=== PATIENT | male | born 1950 | race Caucasian/White ===

== ENCOUNTER 2017-05-26 19:30 | Emergency (ER) | payer OTHER ==
[~2017-05-26] VITALS: Ht 172.7 cm; Wt 82.0 kg
[~2017-05-26 19:30] MED LIST: GLUC500C4 PO; MULTCHW PO; OMEG1CAP51 PO; SIMV80TA2 PO; TRIA75TA PO
[2017-05-26 19:31] VITALS: TEMP 36.7; Ht 172.7 cm; Wt 82.0 kg
[2017-05-26] MEDS ORDERED: ASPI81TA28 PO (19:35)
[2017-05-26] MEDS ORDERED: LTN/10 PO (19:35)
[2017-05-26] MEDS ORDERED: ATOR-26 PO (20:10)
[2017-05-26] MEDS ORDERED: GLUC15002 PO (20:10)
[2017-05-26] MEDS ORDERED: GLC/500 PO (20:10)
[2017-05-26] MEDS ORDERED: OMEG10007 PO (20:10)
--- NOTE | 2017-05-26 20:17 | DIAGNOSTIC IMAGING REPORT ---
LEFT THIRD FINGER 3 VIEWS CLINICAL HISTORY: Fracture. FINDINGS: 3 views of the left third finger are obtained. No prior studies are available for comparison at the time of dictation. The skeletal structures are osteopenic. There is a comminuted fracture through the base of the third distal phalanx with intra-articular extension and small distracted fragments. Overlying soft tissue edema is noted. No additional fracture is seen. The third metacarpophalangeal and proximal interphalangeal joints are well-maintained. No radiodense foreign body is seen. IMPRESSION: There is a comminuted fracture through the base of the third distal phalanx with intra-articular extension and small distracted fragments. Electronically signed by: Daniel Osullivan M.D. 05/26/2017 8:16 PM Dictated Date/Time: 05/26/2017 8:15 PM
[2017-05-26] MEDS ORDERED: CEFAZOLIN SOD 1 GM VIAL IM STA (20:22)
[2017-05-26] MEDS ORDERED: XYLOCAINE 1%/SOD BICARB 20 ML VIAL INFIL ONE (20:30)
[2017-05-26] MEDS ORDERED: CEPHALEXIN 500MG HOME PACK 1 EA BTL PO ONE (20:30)
[2017-05-26] MEDS ORDERED: CEPH500C PO (21:21)
[2017-05-26 21:29] VITALS: PULSE 69; O2SAT 95
[2017-05-26 21:31] VITALS: BP 170/106
[2017-05-26] MEDS ORDERED: WATER, STERILE FOR INJ 10 ML VIAL ONE (21:31)
--- NOTE | 2017-05-26 21:38 | EMERGENCY ROOM VISIT NOTE ---
ED Visit Note First contact with patient: 21:27 LACERATION REPAIR PROCEDURE NOTE: Verbal consent was obtained prior to performing the procedure. 3 cc of 1% buffered lidocaine was used to perform a digital block of the left third digit. Once the patient was anesthetized, the wound was copiously irrigated under pressure with sterile saline. The wound was cleansed and prepped in the typical sterile fashion utilizing normal saline and Betadine. The wound was sterilely draped. The wound was explored and demonstrated deep laceration at the base of the fingernail extending to the bone. The distal extensor tendons partially exposed and appeared to be deeply lacerated, no distal extensor function in the finger. Distal flexion seems to be intact. The wound was loosely closed using 5 simple interrupted 4-0 nylon sutures with the wound edges being well approximated and bleeding was controlled. The wound was cleansed and dressed with a Bacitracin dressing. A metal splint was applied to the finger for comfort. Patient tolerated the procedure well with no complications. Problem List Medical Problems: (1) Hypertension Status: Chronic Current/Historical Medications Scheduled Aspirin (Aspirin Ec), 81 MG PO DAILY Atorvastatin (Lipitor), 80 MG PO DAILY Benazepril Hcl (Benazepril), 10 MG PO DAILY Cephalexin Monohydrate (Keflex), 500 MG PO TID Fish Oil ([place]-3), 1,000 MG PO BID Usdzqwvajvu-Ufrllvifblh-Qoo C- (Glucosamine 1500 Complex), 1 CAP PO BID Metformin Hcl (Glucophage), 500 MG PO BID Allergies Coded Allergies: Lisinopril (Verified Allergy, Severe, DIZZY, ERECTILE DYSFUNCTION, 05/26/17) INFO FROM PT & [facility] Uncoded Allergies: SPRUCE TREES (Allergy, Severe, SWELLING, 04/09/16) Vital Signs Date Time Temp Pulse Resp B/P (MAP) Pulse Ox O2 Delivery O2 Flow Rate FiO2 05/26/17 19:31 36.7 85 20 198/115 97 Room Air Departure Information Dispostion Home / Self-Care Condition GOOD Prescriptions Cephalexin Monohydrate (Keflex) 500 Mg Cap 500 MG PO TID for 7 Days, #21 CAP Prov: Sergio Bergman M.D. 05/26/17 Referrals Silas Landaverde M.D. (PCP) Memo Carmichael MD Forms HOME CARE DOCUMENTATION FORM, IMPORTANT VISIT INFORMATION Patient Instructions My [facility] Additional Instructions Follow up with Dr. Layton of hand surgery on Saturday. Return if you develop any signs of infection such as fever, redness or drainage from the wound.
--- NOTE | 2017-05-26 23:59 | EMERGENCY ROOM VISIT NOTE ---
History Report prepared by Pardeep: Luisana Lin Under the Supervision of: Dr. Sergio Bergman M.D. First contact with patient: 19:49 Chief Complaint: AVULSION Stated Complaint: CUT END LF MIDDLE FINGER OFF History of Present Illness The patient is a 66 year old male who presents to the Emergency Room with complaints of a sudden laceration to his left third digit that began prior to arrival. He currently rates his discomfort as an 8/10 in severity. 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 He states that he caused a laceration to his left middle finger. The patient states that he cannot move the tip of his finger. He states that his tetanus is up to date. The patient denies any numbness to his finger. Source of History: patient Onset: prior to arrival Position: finger(s) (left, third) Symptom Intensity: 8/10 Quality: other (avulsion) Timing: other (sudden) Associated Symptoms: No numbness Note: Associated symptoms: cannot move the tip of his finger. Review of Systems See HPI for pertinent positives & negatives. A total of 10 systems reviewed and were otherwise negative. Past Medical & Surgical Medical Problems: (1) Hypertension Family History Diabetes mellitus Heart disease Hypertension Social History Smoking Status: Former Smoker Alcohol Use: none Marital Status: Housing Status: lives with significant other Occupation Status: retired Current/Historical Medications Scheduled Aspirin (Aspirin Ec), 81 MG PO DAILY Atorvastatin (Lipitor), 80 MG PO DAILY Benazepril Hcl (Benazepril), 10 MG PO DAILY Cephalexin Monohydrate (Keflex), 500 MG PO TID Fish Oil ([place]-3), 1,000 MG PO BID Bzdodrngaag-Sulhrlkbzmm-Ebk C- (Glucosamine 1500 Complex), 1 CAP PO BID Metformin Hcl (Glucophage), 500 MG PO BID Allergies Coded Allergies: Lisinopril (Verified Allergy, Severe, DIZZY, ERECTILE DYSFUNCTION, 05/26/17) INFO FROM PT & [facility] Uncoded Allergies: SPRUCE TREES (Allergy, Severe, SWELLING, 04/09/16) Physical Exam Vital Signs Date Time Temp Pulse Resp B/P (MAP) Pulse Ox O2 Delivery O2 Flow Rate FiO2 05/26/17 21:31 170/106 05/26/17 21:29 69 165/104 95 Room Air 05/26/17 21:29 172/107 05/26/17 21:15 69 97 05/26/17 21:01 174/108 05/26/17 21:00 65 98 05/26/17 20:45 73 94 05/26/17 20:15 69 95 05/26/17 20:01 166/116 05/26/17 20:00 81 96 05/26/17 19:47 186/114 05/26/17 19:31 36.7 85 20 198/115 97 Room Air Physical Exam Constitutional: Vital signs reviewed. Eyes: Pupils are equal round reactive to light. Conjunctiva are noninjected. ENT: Pharynx is clear without erythema or exudate. Mucous membranes are moist. Neck supple without meningeal signs. Respiratory: Clear to auscultation bilaterally. Breath sounds are equal bilaterally. Cardiovascular: Regular rate and rhythm. No rubs or gallops. GI: Soft, nondistended and nontender. Bowel sounds are present. Musculoskeletal: Left third digit with laceration across dorsal aspect. Finger held in flexion at the DIP unable to extend fingertip, normal distal cap refill , normal sensation. Integumentary: No cyanosis. Neurological: The patient is awake and alert. No focal deficits. Psychiatric: Normal affect. Medical Decision & Procedures ER Provider Diagnostic Interpretation: X-ray results as stated below per interpretation by me and the radiologist: LEFT THIRD FINGER 3 VIEWS CLINICAL HISTORY: Fracture. FINDINGS: 3 views of the left third finger are obtained. No prior studies are available for comparison at the time of dictation. The skeletal structures are osteopenic. There is a comminuted fracture through the base of the third distal phalanx with intra-articular extension and small distracted fragments. Overlying soft tissue edema is noted. No additional fracture is seen. The third metacarpophalangeal and proximal interphalangeal joints are well-maintained. No radiodense foreign body is seen. IMPRESSION: There is a comminuted fracture through the base of the third distal phalanx with intra-articular extension and small distracted fragments. Electronically signed by: Daniel Osullivan M.D. 05/26/2017 8:16 PM Dictated Date/Time: 05/26/2017 8:15 PM Medications Administered Medications (Trade) Dose Ordered Sig/Melchor Route Start Time Stop Time Status Last Admin Dose Admin Cefazolin Sodium (Ancef Inj) 1,000 mg ONE STAT IM 05/26/17 20:22 05/26/17 20:23 DC 05/26/17 21:37 1,000 MG Cephalexin Monohydrate (Keflex 500MG Home Pack) 1 homepack NOW ONCE PO 05/26/17 20:30 05/26/17 20:31 DC 05/26/17 21:36 1 HOMEPACK ED Course 1948: The patient was evaluated in room B2. A complete history and physical exam was performed. 2019: I discussed the patients case with Dr. Ann, Orthopedics. He states that the patients finger should be loosely stitched and washed out. He states that he will see the patient in [place] tomorrow or Saturday in [place]. 2021: Ordered Ancef Inj 1000 mg IM. 2022: I reevaluated the patient and he is resting comfortably. I discussed the x-ray results with him and I discussed the treatment plan. He verbalized complete understanding and agreement. He will follow up on Saturday with Dr. Carmichael. The laceration will be repaired by MELANIE Berry. See her note for further detail. 2029: Ordered Cephalexin Monohydrate 1 homepack PO, Lidocaine HCl 20 ml INFIL. 2118: I reevaluated the patient and he is doing well. His laceration has been repaired and he is ready for discharge. 2130: Ordered Sterile Water 10 ml .route. Medical Decision This is a 66-year-old male who presents with an injury to his left third digit. I did perform a limited focused review of portions of the patient's old chart on the electronic medical record. The patient has had no recent pertinent visits to this hospital. Medication Reconciliation: I attest that I have personally reviewed the patient' s current medication list. Blood Pressure Screening: Patient was found to have an elevated blood pressure and was referred to their primary doctor for recheck and further treatment. I did evaluate the patient as noted above. The patient has an open fracture laceration to the left third digit. He has evidence of extensor tendon or injury as well. He declined any pain medications. His tetanus is up-to-date. I did order and personally review the patient's x-rays as described above. I did discuss the results with the patient and his daughter. I did discuss the case with Dr. Carmichael of hand surgery who reviewed the x-rays himself. He recommended loose closure and irrigation and he will follow up in the office either tomorrow or Saturday as per the patient's preference. The wound was copiously irrigated and cleaned by Sandra Bruce. Please see her dictation for further details. He was placed in a bare-metal splint in extension. The patient preferred to follow up in [place] and so he will see the hand surgeon on Saturday. He was discharged with a prescription for Keflex and given Ancef 1 g IM here. Consults Time Called: 2014 Consulting Physician: Dr. Carmichael, Orthopedics Returned Call: 2018 I discussed the patients case with Dr. Ann, Orthopedics. He states that the patients finger should be loosely stitched and washed out. He states that he will see the patient in [place] tomorrow or Saturday in [place]. Impression Primary Impression: Open finger fracture Additional Impression: Injury of extensor tendon of left hand Scribe Attestation The scribe's documentation has been prepared under my direct and personally reviewed by me in its entirety. I confirm that the note above accurately reflects all work, treatment, procedures, and medical decision making performed by me. Departure Information Dispostion Home / Self-Care Prescriptions Cephalexin Monohydrate (Keflex) 500 Mg Cap 500 MG PO TID for 7 Days, #21 CAP Prov: Sergio Bergman M.D. 05/26/17 Referrals Silas Landaverde M.D. (PCP) Memo Carmichael MD Forms HOME CARE DOCUMENTATION FORM, IMPORTANT VISIT INFORMATION Patient Instructions My [facility] Additional Instructions Follow up with Dr. Layton of hand surgery on Saturday. Return if you develop any signs of infection such as fever, redness or drainage from the wound. Problem Qualifiers Primary Impression: Open finger fracture Encounter type: initial encounter Finger: middle finger Phalanx: distal Fracture alignment: nondisplaced Laterality: left Qualified Codes: S62.663B - Nondisplaced fracture of distal phalanx of left middle finger, initial encounter for open fracture Additional Impression: Injury of extensor tendon of left hand Encounter type: initial encounter Qualified Codes: S66.902A - Unspecified injury of unspecified muscle, fascia and tendon at wrist and hand level, left hand, initial encounter
--- NOTE | 2017-05-28 13:35 | EDITING REQUIRED CODING QUERY ---
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 Please assist us with the question(s) below: Please document the length of the LEFT MIDDLE FINGER laceration. Please type the length in cm within the parenthesis () below. LEFT MIDDLE FINGER laceration is ( 4 ) cm. Thank you Floridalma Ling
== END 2017-05-26 21:49 | disposition home or self-care (01) ==
LOC: C.EDB 19:30
DX: S62.663B Nondisplaced fracture of distal phalanx of left middle finger, initial encounter for open fracture (principal); S66.303A Unspecified injury of extensor muscle, fascia and tendon of left middle finger at wrist and hand level, initial encounter; W30.89XA Contact with other specified agricultural machinery, initial encounter; Y92.73 Farm field as the place of occurrence of the external cause; I10 Essential (primary) hypertension; Z87.891 Personal history of nicotine dependence; Z79.84 Long term (current) use of oral hypoglycemic drugs; Z79.82 Long term (current) use of aspirin

== ENCOUNTER 2019-04-22 11:46 | Observation (INO) ==
[2019-04-22] MEDS ORDERED: NITROGLYCERIN 2% OINTMENT 30GM TUBE EXT STA (12:13)
[2019-04-22 12:24] LABS: Basophils # (auto) 0.04 K/uL (0-0.2); Basophils % (auto) 0.7 %; Eosinophils # (auto) 0.12 K/uL (0-0.5); Eosinophils % (auto) 2.1 %; Hematocrit (blood only) 46.5 % (42-52); Immature Granulocytes # (auto) 0.01 K/uL (0.00-0.02); Immature Granulocytes % (auto) 0.2 %; Lymphocytes # (auto) 1.37 K/uL (1.2-3.4); Lymphocytes % (auto) 23.5 %; Mean Corpuscular Hgb Conc 34.4 g/dL (32-36); Mean Corpuscular Volume 91.9 fL (80-100); Mean Platelet Volume 10.5 fL (7.4-10.4); Monocytes # (auto) 0.47 K/uL (0.11-0.59); Neutrophils # (auto) 3.83 K/uL (1.4-6.5); Neutrophils % (auto) 65.5 %; Platelet Count 235 K/uL (130-400); RDW Coefficient of Variation 13.4 % (11.5-14.5); Red Blood Count 5.06 M/uL (4.7-6.1); White Blood Count 5.84 K/uL (4.8-10.8)
--- NOTE | 2019-04-22 12:32 | XRay Report ---
XR chest 1V portable CLINICAL HISTORY: 68 years-old Male presenting with Chest Pain. TECHNIQUE: Portable upright AP view of the chest was obtained. COMPARISON: 10/04/2006. FINDINGS: Cardiac silhouette borderline enlarged. No focal opacity. No large effusion or pneumothorax. Osseous structures normal. Upper abdomen normal. IMPRESSION: 1. Borderline cardiac enlargement. Otherwise no acute cardiopulmonary disease. Electronically signed by: Harrison Richards M.D. 04/22/2019 12:31 PM
[2019-04-22 12:35] LABS: Alanine Aminotransferase 41 U/L (12-78); Albumin Level 3.7 gm/dl (3.4-5.0); Aspartate Aminotransferase 27 U/L (15-37); BUN Creatinine Ratio 21.3 (10-20); Blood Urea Nitrogen 27 mg/dl (7-18); Calcium 8.9 mg/dl (8.5-10.1); Carbon Dioxide 22 mmol/L (21-32); Chloride 109 mmol/L (98-107); Creatinine Clr Calc Pharmacy 57.7 ml/min; Est GFR (African American) 65.3; Est GFR (Non-African American) 56.3; Glucose 108 mg/dl (70-99); Potassium 4.2 mmol/L (3.5-5.1); Sodium 139 mmol/L (136-145)
[2019-04-22 12:39] LABS: Alkaline Phosphatase 65 U/L (45-117); Bilirubin,Total 0.4 mg/dl (0.2-1); Globulin 3.8 gm/dl (2.5-4.0); Total Protein 7.5 gm/dl (6.4-8.2); Troponin I < 0.015 ng/ml (0-0.045)
--- NOTE | 2019-04-22 14:16 | Emergency Department Note ---
Entered by Rhonda Herman acting as a scribe for ED Provider Note CHIEF COMPLAINT: Chest Pain HISTORY OF PRESENT ILLNESS: The patient is a 68 year old male who presents to the Emergency Room with complaints of intermittent chest pain starting 2 weeks ago. The patient states that he has had left sided chest pain that radiates into his left arm over the last 2 weeks. He states that today he went to [facility] and they did an EKG. He states that they were concerned and sent him here to the ED. Per the patient�s records, the patient was given an Aspirin by EMS. The patient currently rates his pain as a 2/10 in severity. He notes that his chest pain is better compared to at the office. The patient notes that 2 weeks ago he was sent to the ED for high blood pressure. He notes that he did have some chest discomfort at that time, but thought it was due to a cold since he was coughing up phlegm. He notes that he had a stress test over 15 years ago. The patient complains of increased urination. The patient denies the pain being worse with exertion. Pt denies LOC, headache, fevers, chills, diaphoresis, visual changes, neck pain, breathing difficulties, nausea, vomiting, abdominal pain, back pain, melena, hematochezia, numbness, tingling, weakness, lymphadenopathy, rash, or other complaints. REVIEW OF SYSTEMS: See HPI for pertinent positives and negatives. A total of ten systems were reviewed and were otherwise negative. PMHx/PSHx: HTN SOCIAL HISTORY: Patient lives at home with his . He is retired from the . He denies drinking alcohol. He does use smokeless tobacco. PHYSICAL EXAM: GENERAL: Awake, alert, well-appearing, in no distress HENT: Normocephalic, atraumatic. Oropharynx unremarkable. EYES: PERRL. Normal conjunctiva. Sclera non-icteric. NECK: Inspection normal. Non-tender. Supple. No nuchal rigidity. FROM. No masses. RESPIRATORY: Clear to auscultation. No wheezes. No rales. Normal respiratory effort. CARDIAC: Bradycardic rate. Normal rhythm. No murmurs. No rubs. Extremities warm and well perfused. Pulses equal. No JVD. GI: Soft, non-distended. No tenderness to palpation. No rebound or guarding. No masses. RECTAL: Deferred. MUSCULOSKELETAL: Atraumatic. Chest examination reveals no tenderness. The back is symmetrical on inspection without obvious abnormality. There is no CVA tenderness to palpation. No joint edema. LOWER EXTREMITIES: Calves are equal size bilaterally and non-tender. No edema. No discoloration. NEURO: Normal sensorium. No sensory or motor deficits noted. SKIN: No rash or jaundice noted. EMERGENCY DEPARTMENT COURSE: 1209: Past medical records reviewed. The patient was evaluated in room C6, and a complete history and physical examination were performed. 1330: I reevaluated the patient and updated him on his test results. I discussed the treatment plan with him. He verbally agrees and understands. 1334: I discussed the patient's case with [facility] She will evaluate the patient for further management. MEDICAL DECISION MAKING: Prior records/ancillary studies reviewed. Patient presented previously for evaluation of hypertension. His laboratory testing was unremarkable. Triage Nursing notes reviewed and agree them. Additional history obtained from the family. The patient's history was concerning for chest pain and acute ECG changes. Differential diagnosis: Etiologies such as cardiac ischemia, aortic dissection, pulmonary embolism, pneumonia, pneumothorax, musculoskeletal, infections, pericarditis, myocarditis, esophageal rupture, gastrointestinal, as well as others were entertained. Physical examination: As above. ER treatment provided: Cardiac monitoring Nitropaste 0.5 inch to the chest wall. Aspirin given prehospital. On reassessment the patient felt well. He was still pain-free. Diagnostic interpretation by me: The electrocardiogram was negative for pathologic change. The labs revealed an unremarkable CBC and chemistry panel. Troponin was negative. Imaging studies: Chest imaging was negative for any acute pathology. The patient has acute ECG changes with chest pain. He needs further management and work-up in the hospital. I discussed this with him and his daughter. They were both in agreement. Consultation: [facility] The case was discussed and diagnostics were reviewed. The patient was evaluated in the ER for further treatment. IMPRESSION: Substernal chest pain, Acute ECG changes, HTN PLAN: Evaluation by Hospitalist The scribe's documentation has been prepared under my direction and personally reviewed by me in its entirety. I confirm that the note above accurately reflects all work, treatment, procedures, and medical decision making performed by me. Impression & Plan Substernal chest pain, HTN (hypertension), Acute electrocardiogram changes Past Med/Surg History Medical History Encounter for tobacco use cessation counseling (Acute) Hypertension (Chronic) Injury of extensor tendon of left hand (Acute) Open finger fracture (Acute) Family History Other Family history non-contributory Social History Preferred Language: Uzbek marital status: Current Living Situation: Spouse current occupational status: retired Feels Safe at Home: Yes Smoking Status: Never smoker Tobacco Type: smokeless tobacco Hx Alcohol Use: No Results & Data Vital Signs Vital Signs - 24 hr 04/22/19 11:40 04/22/19 11:54 04/22/19 11:57 Temperature 36.5 C Temperature Source Oral Sepsis Recent Fever Within 48 Hours No Sepsis New/Unexplained Change in Mental Status No Sepsis Action Taken by Nursing No Action Required Pulse Rate 53 L 56 L Pulse Rate from SpO2 Sensor 52 L Pulse Rhythm Regular Pulse Strength Normal Respiratory Rate 23 18 Respiratory Effort / Characteristics Non-Labored Spontaneous Respiratory Depth Normal Respiratory Pattern Regular Blood Pressure 155/126 H 155/126 H Blood Pressure Mean 135 135 Blood Pressure Position Lying Pulse Oximetry 98 96 97 Oxygen Delivery Method Room Air Room Air 04/22/19 12:00 04/22/19 12:30 04/22/19 12:37 Temperature Temperature Source Sepsis Recent Fever Within 48 Hours Sepsis New/Unexplained Change in Mental Status Sepsis Action Taken by Nursing Pulse Rate 53 L 54 L 51 L Pulse Rate from SpO2 Sensor 55 L 55 L 53 L Pulse Rhythm Pulse Strength Respiratory Rate 24 18 20 Respiratory Effort / Characteristics Respiratory Depth Respiratory Pattern Blood Pressure 170/108 H Blood Pressure Mean 128 Blood Pressure Position Pulse Oximetry 96 97 96 Oxygen Delivery Method Home Medications Current Medication List: was personally reviewed by me Laboratory Data Attestation: I reviewed the patient's lab results. Result diagrams: 04/22/19 11:35 04/22/19 11:35 Lab Results 04/22/19 04/22/19 Range/Units 11:35 11:35 WBC 5.84 (4.8-10.8) K/uL RBC 5.06 (4.7-6.1) M/uL Hgb 16.0 (14.0-18.0) g/dL Hct 46.5 (42-52) % MCV 91.9 (80-100) fL MCH 31.6 (25-34) pg MCHC 34.4 (32-36) g/dL RDW Std Deviation 45.0 (36.4-46.3) fL RDW Coeff of Jeny 13.4 (11.5-14.5) % Plt Count 235 (130-400) K/uL MPV 10.5 H (7.4-10.4) fL Immature Gran % (Auto) 0.2 % Neut % (Auto) 65.5 % Lymph % (Auto) 23.5 % [place] % (Auto) 8.0 % Eos % (Auto) 2.1 % Baso % (Auto) 0.7 % Immature Gran # (Auto) 0.01 (0.00-0.02) K/uL Neut # (Auto) 3.83 (1.4-6.5) K/uL Lymph # (Auto) 1.37 (1.2-3.4) K/uL [place] # (Auto) 0.47 (0.11-0.59) K/uL Eos # (Auto) 0.12 (0-0.5) K/uL Baso # (Auto) 0.04 (0-0.2) K/uL Sodium 139 (136-145) mmol/L Potassium 4.2 (3.5-5.1) mmol/L Chloride 109 H (98-107) mmol/L Carbon Dioxide 22 (21-32) mmol/L Anion Gap 8.0 (3-11) BUN 27 H (7-18) mg/dl Creatinine 1.28 (0.6-1.4) mg/dl Est Cr Clr Drug Dosing 57.7 ml/min Est GFR ( Amer) 65.3 Est GFR (Non-Af Amer) 56.3 BUN/Creatinine Ratio 21.3 H (10-20) Glucose 108 H (70-99) mg/dl Calcium 8.9 (8.5-10.1) mg/dl Total Bilirubin 0.4 (0.2-1) mg/dl AST 27 (15-37) U/L ALT 41 (12-78) U/L Alkaline Phosphatase 65 (45-117) U/L Troponin I < 0.015 (0-0.045) ng/ml Total Protein 7.5 (6.4-8.2) gm/dl Albumin 3.7 (3.4-5.0) gm/dl Globulin 3.8 (2.5-4.0) gm/dl Albumin/Globulin Ratio 1.0 (0.9-2) Lipase 138 (73-393) U/L Specimen Hemolysis Administered Medications Discontinued Medications Nitroglycerin (Nitro-Bid 2%) 0.5 inch EXT NOW STA Stop: 04/22/19 12:14 Last Admin: 04/22/19 12:26 Dose: 0.5 inch Documented by: [id number] Imaging Data Radiologist's Impression: Radiology results as stated below per my review and the radiologist's interpretation: XR chest 1V portable CLINICAL HISTORY: 68 years-old Male presenting with Chest Pain. TECHNIQUE: Portable upright AP view of the chest was obtained. COMPARISON: 10/04/2006. FINDINGS: Cardiac silhouette borderline enlarged. No focal opacity. No large effusion or pneumothorax. Osseous structures normal. Upper abdomen normal. IMPRESSION: 1. Borderline cardiac enlargement. Otherwise no acute cardiopulmonary disease. Electronically signed by: Harrison Richards M.D. 04/22/2019 12:31 PM ECG Data Attestation: I personally reviewed and interpreted this ECG as follows: Indication: chest pain Rate (beats per minute): 49 Rhythm: sinus bradycardia Findings: + T-wave inversion (lateral); no PAC, no PVC and no ST elevation Comparison ECG Date: from (04/10/2019) Change: the following changes noted (Inferior and lateral TWI are new compared to prior) Additional Comments: PREHOSPITAL: Sinus bradycardia at a rate of 56. TWI in inferior and lateral leads. No PVCs or PACS. No ST elevation. Blood Pressure Blood Pressure Findings: Elevated blood pressure Blood Pressure Disposition: further management by hospitalist Discharge Plan Visit Data Chief Complaint: Chest Pain ED Provider: Porfirio Candelaria Discharge Problem: Substernal chest pain, HTN (hypertension), Acute electrocardiogram changes Patient Disposition: Being Evaluated by Hospitalist Forms Stand Alone Forms: Call Back Authorization, [facility] Prescriptions Prescriptions: No Action metformin [Glucophage] 500 mg Tablet 250 mg PO BIDM RF: 0 atorvastatin 80 mg Tablet 80 mg PO QAM RF: 0 aspirin [Aspir-Low] 81 mg Tablet,Delayed Release (Dr/Ec) 81 mg PO QAM RF: 0 acetaminophen [Tylenol Extra Strength] 500 mg Tablet 500 mg PO QID PRN (Reason: Pain) RF: 0 [place]-3 Fish Oil 300-1,000 mg Capsule 1 cap PO BID RF: 0 Glucosamine Chondroitin 550-30-1 mg Capsule 1 cap PO BID RF: 0 benazepril 5 mg tablet 5 mg PO DAILY RF: 0 potassium 99 mg Tablet 99 mg PO QAM RF: 0 Referrals Referrals: Silas Landaverde MD [Primary Care Provider] - Discharge Problem: HTN (hypertension) Qualifiers: Hypertension type: unspecified Qualified Code(s): I10 - Essential (primary) hypertension The scribe's documentation has been prepared under my direction and personally reviewed by me in its entirety. I confirm that the note above accurately reflects all work, treatment, procedures, and medical decision making performed by me.
--- NOTE | 2019-04-22 15:43 | History & Physical Report ---
Date of Service April 22, 2019 Assessment & Plan (1) Chest pain: Pt presents with c/o intermittent CP x 2 weeks. Last night with lightheaded sensation with CP. In ER afebrile, P: 56, R: 18, BP: 155/126, 97% on RA. No leukocytosis, initial troponin negative. EKG: sinus bradycardia, rate 49, t wave inversion lateral and inferior. Outside facility ekg from today at 10:35am shows t wave inversion lateral and inferior leads. 04/10/19 ekg with t wave inversion lateral leads CXR: Borderline cardiac enlargement. Otherwise no acute cardiopulmonary disease. Pt was given 324mg aspirin by EMS. Pt reports has been CP free prior to ER arrival and remains CP frees iN ER. In ER nitropaste applied. H/O negative exercise stress test 2010 CHEST PAIN R/O ACS. Risk factors: HTN, hyperlipidemia, tobacco use. DDX: HTN emergency, GERD, musculoskeletal -Monitor Vitals -Repeat EKG in am -Will trend troponin -Pt with reported pleuritic CP in ER, D-dimer was WNL -Echo -Lipid panel in AM, continue statin -Continue ASA -Nitropaste -Cardiology consult (2) Hypertension: Pt did not have BP meds today. Hx home BPs with SBPs 150's-200 over the past month In ER BP: 155/126, 170/108 down to 161/98 after 0.5 inch nitro paste -Continue lisinopril -Nitropaste -May need to consider adding additional meds -Monitor BP (3) Diabetes mellitus, type II: A1c: 6.5 on 03/06/2018 -Hold metformin -NovoLog sliding scale per protocol (4) Dyslipidemia: -Continue standard (5) CKD (chronic kidney disease), stage III: Cr: 1.28 (baseline 1.2) -Monitor renal functions -Avoid nephrotoxic agents when possible (6) Tobacco chew use: -Cessation encouraged DVT Prophylaxis -Heparin SQ Full Code as per discussion with pt Follows with Dr Landaverde and [facility] for routine care Pt was seen with Dr Pantoja. See addendum History of Present Illness Chief Complaint: CP Primary Care Provider: Silas Landaverde MD Pt is 68 y/o M with PMH HTN, dyslipidemia, CKD III, DM II, tobacco use presented to ER with complaint of chest pain. Patient reports increased intermittent anterior mid chest pain for the past 2 weeks. Chest pain can occur with sitting and has been occurring 2-3 times a day. It is sometimes followed by paresthesias to his bilateral upper arms. Has not had any other associated symptoms until yesterday when he had chest pain and felt lightheaded. Denies any radiation of chest pain. Denies left arm pain, jaw pain, neck pain, diaphoresis, shortness of breath syncope, palpitations. Pt states initially he thought he was having acid reflux and tried Tums/Rolaids without relief. Patient has been having elevated blood pressures. He has been taking BP at home and home readings SBP 150-200. Patient was started on medication by a clinic. Patient is unsure of his BP meds however it appears that patient was prescribed benazepril 10 mg daily by [facility]. Patient had ER visit 04/10/2019 for hypertension and lisinopril was increased to 20mg daily. (It appears the patient is currently on lisinopril) patient denies any other BP med use. He did not have his BP meds today. Patient was at [facility] today and mentioned had chest pain and EKG was obtained there showing T wave inversion inferior and lateral leads. Patient was sent to ER. Patient reports was given 4 baby aspirin by EMS in route and states had resolution of his CP. No further CP while in ER. Patient reports chronic left shoulder pain and has been following with the [facility] and had x-rays taken recently, unsure of results. Pt reports has been taking Claritin-D recentl y. 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 Reports chronic cough productive white. Denies fever/chills, diaphoresis, N/V/D/C, FLEMING, vision changes, neck pain, SOB, orthopnea, palpitations, sore throat, choking, otalgia, rhinorrhea, abdominal pa in, weakness, extremity weakness, extremity edema, rashes, urinary symptoms. Hx exercise stress test 2011: No inducible ischemia Allergies Allergy/AdvReac Type Severity Reaction Status Date / Time lisinopril Allergy Severe DIZZY, Verified 04/22/19 12:36 ERECTILE DYSFUNCTION SPRUCE TREES Allergy Severe SWELLING Uncoded 04/22/19 12:36 Home Medications Home Medications Medication Instructions Recorded Confirmed Type acetaminophen [Tylenol Extra 500 mg PO QID PRN 04/10/19 04/22/19 History Strength] aspirin [Aspir-Low] 81 mg PO QAM 04/10/19 04/22/19 History atorvastatin 80 mg PO QAM 04/10/19 04/22/19 History glucos sul [id number]-Mn 1 cap PO BID 04/10/19 04/22/19 History [Glucosamine Chondroitin] metformin [Glucophage] 500 mg PO BID 04/10/19 04/22/19 History [id number]-epa-fish oil [[place]-3 1 cap PO BID 04/10/19 04/22/19 History Fish Oil] lisinopril 10 mg PO BID 04/22/19 04/22/19 History potassium 99 mg PO QAM 04/22/19 04/22/19 History Past Med/Surg History Medical History Dyslipidemia (Chronic) CKD (chronic kidney disease), stage III (Chronic) Diabetes mellitus, type II (Chronic) Tobacco chew use (Chronic) Hypertension (Chronic) Injury of extensor tendon of left hand (Resolved) Open finger fracture (Resolved) Surgical History History of carpal tunnel surgery (Resolved) Family History Father Coronary heart disease [place] at age 80 Social History Preferred Language: Latvian Communication Ability: Effective 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 Beliefs That Will Affect Care: None marital status: Current Living Situation: Spouse current occupational status: retired Feels Safe at Home: No Is there a partner from a previous relationship who is making you feel unsafe now?: No Any Concerns about Your Family Situation: No Would You Like to Speak to Someone About Your Situation: No Safety Concerns: Feels Safe At This Time Smoking Status: Former smoker Tobacco Type: cigarettes and smokeless tobacco Cigarettes Per Day: 20, chew-pouch a week Do You Dip or Chew Tobacco: Yes Smoking End Date: 1999 Second Hand Exposure: No Tobacco Cessation Education Requested by Patient: No Hx Alcohol Use: No Hx Substance Use: No Review of Systems Review of Systems: All systems reviewed & are unremarkable except as noted in HPI & below Physical Exam Physical Exam: General: no acute distress, WDWN Head: normocephalic, atraumatic Eyes: PERRL, EOM's intact, conjunctiva non-injected, anicteric ENT: normal inspection external ears, nose, mucous membranes moist Neck: supple, trachea midline Lungs: clear, no respiratory distress, no wheezing/rhonchi/rales Chest: no rashes noted; mild tenderness to palpation left lower sternal border CV: RRR, no murmur, no pretibial edema Abd: normal BS, soft, non-tender Ext: no cyanosis, no calf tenderness Neuro: A&O x 3, no focal deficits noted, normal affect Skin: warm, dry Results & Data Vital Signs (Past 12 Hours) Vital Signs Temp Pulse Resp BP Pulse Ox 04/22/19 12:37 51 L 20 170/108 H 96 04/22/19 12:30 54 L 18 97 04/22/19 12:00 53 L 24 96 04/22/19 11:57 36.5 C 56 L 18 155/126 H 97 04/22/19 11:54 53 L 23 155/126 H 96 04/22/19 11:40 98 Laboratory Results Short CBC 04/22/19 Range/Units 11:35 WBC 5.84 (4.8-10.8) K/uL Hgb 16.0 (14.0-18.0) g/dL Hct 46.5 (42-52) % Plt Count 235 (130-400) K/uL BMP 04/22/19 11:35 Sodium 139 Potassium 4.2 Chloride 109 H Carbon Dioxide 22 BUN 27 H Creatinine 1.28 Glucose 108 H Calcium 8.9 Cardiac Enzymes 04/22/19 Range/Units 11:35 Troponin I < 0.015 (0-0.045) ng/ml Liver Function 04/22/19 Range/Units 11:35 Total Bilirubin 0.4 (0.2-1) mg/dl AST 27 (15-37) U/L ALT 41 (12-78) U/L Alkaline Phosphatase 65 (45-117) U/L Albumin 3.7 (3.4-5.0) gm/dl Diagnostic Findings CXR: IMPRESSION: 1. Borderline cardiac enlargement. Otherwise no acute cardiopulmonary disease. ECG Additional Comments: sinus bradycardia, rate 49, t wave inversion lateral and inferior outside facility ekg from today at 10:35am shows t wave inversion lateral and inferior leads 04/10/19 ekg with t wave inversion lateral leads Supervising Physician Co-Signing Physician Notes Patient is a 68-year-old male with history of CKD, dyslipidemia, tobacco use, hypertension and other problems presents with history of chest pain. He reports the chest pain is intermittent, retrosternal, ongoing since past 2 weeks. Admits to having high blood pressure readings at home. Also admits to being noncompliant with salt restriction. Please review HPI for complete details of presentation. Patient was found to have elevated blood pressure on presentation today. Troponin x2 negative. EKG showed T wave inversions in inferolateral leads. Chest x-ray was unremarkable. He was given aspirin by EMS, Nitropaste applied in ED, currently is chest pain-free while in ED. Negative D-Dimer. Chest pain is likely secondary to uncontrolled hypertension. Chronic bradycardia likely physiological. Plan to trend troponins, check resting echo, continue Nitropaste, cardiology consulted. Need to optimize medications to control blood pressure. Advised salt restriction, counseled to quit tobacco use. On exam patient is well-built and nourished, no apparent distress, normocephalic atraumatic, lungs are clear to auscultation, S1-S2, no murmur, abdomen soft nontender, no neurological focal deficits, no pedal edema. I personally reviewed the record. Patient is interviewed and examined at bedside. Patient's care is coordinated with Donna Ghotra PA-C. Please refer to the documentation above for details of patient's presentation and for discussion of other issues.
[2019-04-22 16:02] LABS: D Dimer 350 ug/L FEU (0-500)
[2019-04-22] MEDS ORDERED: GLUCOSE 40% GEL 15 GM TUBE PO PRN (17:23)
[2019-04-22] MEDS ORDERED: GLUCAGON FOR INJ 1 MG VIAL SQ PRN (17:23)
[2019-04-22] MEDS ORDERED: CARBOHYDRATES FOR HYPOGLYCEMIA PO PRN (17:23)
[2019-04-22] MEDS ORDERED: GLUCOSE 10 TABS/TUBE PO PRN (17:23)
[2019-04-22] MEDS ORDERED: ACETAMINOPHEN 325 MG TAB PO PRN (17:23)
[2019-04-22] MEDS ORDERED: DEXTROSE 50% 50 ML SYRINGE IV PRN (17:23)
[2019-04-22] MEDS: INSULIN ASPART 100 UNITS/ML 3 ML PEN SC SCH ×2 (18:07→20:55)
[2019-04-22] MEDS: NITROGLYCERIN 2% OINTMENT 30GM TUBE EXT SCH ×2 (18:18→23:21)
[2019-04-22 18:20] LABS: INR 1.1 (0.9-1.1); Partial Thromboplastin Time 27.6 Seconds (21.0-31.0); Prothrombin Time 10.8 Seconds (9.0-12.0)
[2019-04-22] MEDS: LISINOPRIL 10 MG TAB PO SCH ×2 (18:39→20:56)
[2019-04-22] MEDS: HEPARIN SOD 5,000 UNIT/0.5 ML VIAL SQ SCH (22:15)
[2019-04-23] MEDS: NITROGLYCERIN 2% OINTMENT 30GM TUBE EXT SCH ×5 (05:26→23:21)
[2019-04-23] MEDS: HEPARIN SOD 5,000 UNIT/0.5 ML VIAL SQ SCH ×3 (05:26→21:29)
[2019-04-23 07:43] LABS: Hematocrit (blood only) 44.5 % (42-52); Hemoglobin 15.7 g/dL (14.0-18.0); Mean Corpuscular Hgb Conc 35.3 g/dL (32-36); Mean Corpuscular Volume 91.6 fL (80-100); Platelet Count 216 K/uL (130-400); RDW Coefficient of Variation 13.4 % (11.5-14.5); Red Blood Count 4.86 M/uL (4.7-6.1); White Blood Count 6.42 K/uL (4.8-10.8)
--- NOTE | 2019-04-23 07:53 | Hospitalist Progress Note ---
Date of Service April 23, 2019 Assessment & Plan (1) Chest pain: Pt presents with c/o intermittent CP x 2 weeks. Last night with lightheaded sensation with CP. CHEST PAIN: Risk factors: HTN, hyperlipidemia, tobacco use. DDX: HTN emergency, GERD, musculoskeletal Hx of negative exercise stress test in 2010 EKG: sinus bradycardia, T wave inversion in V4-6; no change compared to 04/10 EKG -Trop x 2 negative. Had a brief episode of A flutter ? - cardiology made aware -Continue with ASA, Atorvastatin, Lisinopril, Nitroglycerin q 6 hours -Echo- EF 45-50%, Gd I diastolic dysfunction, Moderate LVH -Work up- CXR: Borderline cardiac enlargement. Otherwise no acute cardiopulmonary disease -Cardiology consulted- Plan is for stress test today (2) Hypertension: Elevated -Continue lisinopril 10 mg twice daily -Nitropaste every 6 hours -Monitor BP (3) Diabetes mellitus, type II: A1c: 6.5 on 03/06/2018 -Hold metformin -NovoLog sliding scale per protocol (4) Dyslipidemia: -Continue atorvastatin 80 mg nightly (5) CKD (chronic kidney disease), stage III: Cr: 1.28 (baseline 1.2) -Monitor renal functions -Avoid nephrotoxic agents when possible (6) Tobacco chew use: -Cessation encouraged DVT Prophylaxis -Heparin SQ Full Code as per discussion with pt Follows with Dr Landaverde and [facility] for routine care DISPOSITION Medical mx in progress For stress test today Subjective Patient is feeling much better. Denies any chest pain, shortness of breath. No palpitations or dizziness. Saturating well on room air Telemetry- Brief episode of Atrial flutter Physical Exam Physical Exam: GENERAL- AAOX3, No acute distress LUNGS- Air entry bilaterally equal. No rales, rhonchi, crackles, wheezes heard. HEART- Regular rate and rhythm. No murmurs ABDOMEN- Soft, non tender, non distended, Bowel sounds heard. EXTREMITIES- Good peripheral pulses, no edema Results & Data Vital Signs (Past 12 Hours) Vital Signs Temp Pulse Pulse Resp BP BP Pulse Ox 04/23/19 07:45 36.5 C 58 L 21 154/87 H 162/102 H 95 04/23/19 07:38 54 L 04/23/19 04:00 36.5 C 69 18 155/98 H 94 04/23/19 00:14 63 04/22/19 23:25 36.3 C L 57 L 18 128/80 94
[2019-04-23 08:16] LABS: BUN Creatinine Ratio 18.4 (10-20); Calcium 8.9 mg/dl (8.5-10.1); Creatinine Clr Calc Pharmacy 55.3 ml/min; Est GFR (African American) 62.9; Est GFR (Non-African American) 54.3; Potassium 4.2 mmol/L (3.5-5.1)
[2019-04-23] MEDS: ATORVASTATIN 40 MG TAB PO SCH (08:36)
[2019-04-23] MEDS: LISINOPRIL 10 MG TAB PO SCH ×2 (08:36→21:29)
[2019-04-23] MEDS: ASPIRIN 81 MG ECTAB PO SCH (08:36)
[2019-04-23] MEDS: INSULIN ASPART 100 UNITS/ML 3 ML PEN SC SCH ×4 (09:49→21:30)
--- NOTE | 2019-04-23 13:01 | Cardiology Consultation ---
Date of Consultation April 23, 2019 Assessment & Plan (1) Chest pain: The patient's chest pain is atypical however, he does have risk factors including his age, probable type 2 diabetes, hypertension, dyslipidemia and tobacco. I would recommend that he be screened for coronary artery disease with an exercise stress echocardiogram. 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 He will need to be followed closely after discharge. 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 He has a history of dyslipidemia, hypertension and oral chewing tobacco. He at one time had taken metformin but he states that was discontinued several years ago. He is not someone that goes to the doctor regularly. I get the impression that his hypertension has been undertreated. He presented with atypical chest pain. He has had this discomfort for 1 to 2 weeks. It is not related to activity and actually can occur while he is sitting and resting. He has had no progressive shortness of breath. No heart palpitations, tachycardia, dizziness or lightheadedness. He denies orthopnea or lower extremity edema. Following admission to the hospital his cardiac markers have been negative. His EKG shows evidence of left ventricular hypertrophy. His resting echocardiogram shows left ventricular hypertrophy with a low normal ejection fraction of around 40 to 50%. The findings are suggestive of hypertensive heart disease. Allergies Allergy/AdvReac Type Severity Reaction Status Date / Time lisinopril Allergy Severe DIZZY, Verified 04/22/19 12:36 ERECTILE DYSFUNCTION SPRUCE TREES Allergy Severe SWELLING Uncoded 04/22/19 12:36 Home Medications Home Medications Medication Instructions Recorded Confirmed Type acetaminophen [Tylenol Extra 500 mg PO QID PRN 04/10/19 04/22/19 History Strength] aspirin [Aspir-Low] 81 mg PO QAM 04/10/19 04/22/19 History atorvastatin 80 mg PO QAM 04/10/19 04/22/19 History glucos sul [id number]-C-Mn 1 cap PO BID 04/10/19 04/22/19 History [Glucosamine Chondroitin] metformin [Glucophage] 500 mg PO BID 04/10/19 04/22/19 History szfwq-9w-kqw-epa-fish oil [[place]-3 1 cap PO BID 04/10/19 04/22/19 History Fish Oil] lisinopril 10 mg PO BID 04/22/19 04/22/19 History potassium 99 mg PO QAM 04/22/19 04/22/19 History Patient History Medical History Dyslipidemia (Chronic) CKD (chronic kidney disease), stage III (Chronic) Diabetes mellitus, type II (Chronic) Tobacco chew use (Chronic) Hypertension (Chronic) Injury of extensor tendon of left hand (Resolved) Open finger fracture (Resolved) Surgical History History of carpal tunnel surgery (Resolved) Family History Father Coronary heart disease [place] at age 80 Social History Preferred Language: Bengali Communication Ability: Effective 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 Relations 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: No Beliefs That Will Affect Care: None marital status: Current Living Situation: Spouse current occupational status: retired Feels Safe at Home: No Is there a partner from a previous relationship who is making you feel unsafe now?: No Any Concerns about Your Family Situation: No Would You Like to Speak to Someone About Your Situation: No Safety Concerns: Feels Safe At This Time Smoking Status: Former smoker Tobacco Type: cigarettes and smokeless tobacco Cigarettes Per Day: 20, chew-pouch a week Do You Dip or Chew Tobacco: Yes Smoking End Date: 1999 Second Hand Exposure: No Tobacco Cessation Education Requested by Patient: No Hx Alcohol Use: No Hx Substance Use: No Review of Systems Review of Systems: All systems reviewed & are unremarkable except as noted in HPI & below Nothing additional Physical Exam Physical Exam: General: no acute distress and stated age Head: normocephalic, no masses, lesions, tenderness or abnormalities Eyes: conjunctiva are pink and non-injected, sclera clear Neck: supple, no adenopathy, no bruits, normal jugular venous pulse, no hepatojugular reflux Chest: normal shape and normal respiratory effort Lungs: clear to auscultation and percussion Cardiac Exam: - regular rate & rhythm, no murmurs gallops or rubs - normal S1, normal S2 Pulses: 2(+) throughout Abdomen: abdomen soft, non-tender, no abnormal masses and no hepatosplenomegaly Musculoskeletal: no gait disturbance, no joint inflammation, no deforming arthritis Extremities: no edema and no cyanosis Neuro: grossly normal exam Results & Data Vital Signs (Past 12 Hours) Vital Signs Temp Pulse Pulse Resp BP BP Pulse Ox 04/23/19 11:37 36.5 C 50 L 19 146/91 H 95 04/23/19 07:45 36.5 C 58 L 21 154/87 H 162/102 H 95 04/23/19 07:38 54 L 04/23/19 04:00 36.5 C 69 18 155/98 H 94 Laboratory Results Laboratory Results - last 24 hr 04/22/19 04/22/19 04/22/19 15:44 15:44 17:36 WBC RBC Hgb Hct MCV MCH MCHC RDW Std Deviation RDW Coeff of Jeny Plt Count MPV PT 10.8 INR 1.1 APTT 27.6 PTT Ratio 1.0 D-Dimer 350 Sodium Potassium Chloride Carbon Dioxide Anion Gap BUN Creatinine Est Cr Clr Drug Dosing Est GFR ( Amer) Est GFR (Non-Af Amer) BUN/Creatinine Ratio Glucose POC Glucose Calcium Troponin I < 0.015 Triglycerides Cholesterol LDL Cholesterol, Calc VLDL Cholesterol, Calc HDL Cholesterol Cholesterol/HDL Ratio 04/22/19 04/22/19 04/22/19 17:49 20:17 23:11 WBC RBC Hgb Hct MCV MCH MCHC RDW Std Deviation RDW Coeff of Jeny Plt Count MPV PT INR APTT PTT Ratio D-Dimer Sodium Potassium Chloride Carbon Dioxide Anion Gap BUN Creatinine Est Cr Clr Drug Dosing Est GFR ( Amer) Est GFR (Non-Af Amer) BUN/Creatinine Ratio Glucose POC Glucose 86 83 Calcium Troponin I < 0.015 Triglycerides Cholesterol LDL Cholesterol, Calc VLDL Cholesterol, Calc HDL Cholesterol Cholesterol/HDL Ratio 04/23/19 04/23/19 04/23/19 07:07 07:07 07:24 WBC 6.42 RBC 4.86 Hgb 15.7 Hct 44.5 MCV 91.6 MCH 32.3 MCHC 35.3 RDW Std Deviation 45.0 RDW Coeff of Jeny 13.4 Plt Count 216 MPV 10.0 PT INR APTT PTT Ratio D-Dimer Sodium 140 Potassium 4.2 Chloride 109 H Carbon Dioxide 24 Anion Gap 7.0 BUN 24 H Creatinine 1.32 Est Cr Clr Drug Dosing 55.3 Est GFR ( Amer) 62.9 Est GFR (Non-Af Amer) 54.3 BUN/Creatinine Ratio 18.4 Glucose 95 POC Glucose 102 H Calcium 8.9 Troponin I Triglycerides 163 H Cholesterol 139 LDL Cholesterol, Calc 77 VLDL Cholesterol, Calc 33 HDL Cholesterol 29 Cholesterol/HDL Ratio 5 04/23/19 11:24 WBC RBC Hgb Hct MCV MCH MCHC RDW Std Deviation RDW Coeff of Jeny Plt Count MPV PT INR APTT PTT Ratio D-Dimer Sodium Potassium Chloride Carbon Dioxide Anion Gap BUN Creatinine Est Cr Clr Drug Dosing Est GFR ( Amer) Est GFR (Non-Af Amer) BUN/Creatinine Ratio Glucose POC Glucose 97 Calcium Troponin I Triglycerides Cholesterol LDL Cholesterol, Calc VLDL Cholesterol, Calc HDL Cholesterol Cholesterol/HDL Ratio Medications Administered Current Inpatient Medications Acetaminophen (Tylenol) 650 mg PO Q4H PRN PRN Reason: Pain or Fever Stop: 05/22/19 17:22 Last Admin: 04/22/19 22:18 Dose: 650 mg Documented by: Aspirin (Ecotrin Ectab) 81 mg PO QAM [facility] Stop: 05/23/19 08:59 Last Admin: 04/23/19 08:36 Dose: 81 mg Documented by: Atorvastatin Calcium (Lipitor) 80 mg PO QAM [facility] Stop: 05/23/19 08:59 Last Admin: 04/23/19 08:36 Dose: 80 mg Documented by: Dextrose (Dextrose 50%) 25 - 50 ml IV UD PRN; Protocol PRN Reason: Hypoglycemia Protocol Stop: 05/22/19 17:22 Glucagon (Glucagen) 1 mg SQ UD PRN; Protocol PRN Reason: Hypoglycemia Protocol Stop: 05/22/19 17:22 Glucose (Glucose 40%) 15 - 30 gm PO UD PRN; Protocol PRN Reason: Hypoglycemia Protocol Stop: 05/22/19 17:22 Glucose (Dex4 Glucose) 4 - 8 tabs PO UD PRN; Protocol PRN Reason: Hypoglycemia Protocol Stop: 05/22/19 17:22 Heparin Sodium (Porcine) (Heparin Sodium (Porcine)) 5,000 units SQ Q8 [facility] Stop: 05/22/19 21:59 Last Admin: 04/23/19 05:26 Dose: Not Given Documented by: Insulin Aspart (Novolog Flexpen) 0 units SC ACHS [facility] Stop: 05/22/19 17:22 Last Admin: 04/23/19 12:43 Dose: Not Given Documented by: Lisinopril (Zestril) 10 mg PO BID [facility] Stop: 05/22/19 17:22 Last Admin: 04/23/19 08:36 Dose: 10 mg Documented by: Miscellaneous (Carbohydrates For Hypoglycemia) 15 - 30 gm PO UD PRN PRN Reason: Hypoglycemia Treatment Stop: 05/22/19 17:22 Nitroglycerin (Nitro-Bid 2%) 0.5 inch EXT Q6 [facility] Stop: 05/22/19 17:59 Last Admin: 04/23/19 12:52 Dose: Not Given Documented by:
[2019-04-23] MEDS: CARVEDILOL 6.25 MG TAB PO SCH (21:29)
[2019-04-24] MEDS: NITROGLYCERIN 2% OINTMENT 30GM TUBE EXT SCH (04:49)
[2019-04-24] MEDS: HEPARIN SOD 5,000 UNIT/0.5 ML VIAL SQ SCH (05:22)
[2019-04-24] MEDS: CARVEDILOL 6.25 MG TAB PO SCH (08:11)
[2019-04-24] MEDS: ASPIRIN 81 MG ECTAB PO SCH (08:14)
[2019-04-24] MEDS: ATORVASTATIN 40 MG TAB PO SCH (08:14)
[2019-04-24] MEDS: LISINOPRIL 10 MG TAB PO SCH (08:14)
[2019-04-24] MEDS: INSULIN ASPART 100 UNITS/ML 3 ML PEN SC SCH ×2 (09:36→12:35)
--- NOTE | 2019-04-24 12:10 | Cardiology Progress Note ---
Date of Service April 24, 2019 Assessment & Plan (1) Dyslipidemia: (2) Hypertension: The patient's hypertension is better controlled and he is tolerating the medications including carvedilol. (3) Diabetes mellitus, type II: (4) Hypertensive heart and chronic kidney disease: I will arrange follow-up through my office after discharge. Subjective Uneventful night. The patient wants to be discharged. Review of Systems Review of Systems: All systems reviewed & are unremarkable except as noted in HPI & below Nothing additional Physical Exam Physical Exam: General: no acute distress and stated age Head: normocephalic, no masses, lesions, tenderness or abnormalities Eyes: conjunctiva are pink and non-injected, sclera clear Neck: supple, no adenopathy, no bruits, normal jugular venous pulse, no hepatojugular reflux Chest: normal shape and normal respiratory effort Lungs: clear to auscultation and percussion Cardiac Exam: - regular rate & rhythm, no murmurs gallops or rubs - normal S1, normal S2 Pulses: 2(+) throughout Abdomen: abdomen soft, non-tender, no abnormal masses and no hepatosplenomegaly Musculoskeletal: no gait disturbance, no joint inflammation, no deforming arthritis Extremities: no edema and no cyanosis Neuro: grossly normal exam Results & Data Vital Signs (Past 12 Hours) Vital Signs Temp Pulse Pulse Resp BP Pulse Ox 04/24/19 11:51 36.3 C L 58 L 24 124/82 92 04/24/19 08:00 55 L 63 04/24/19 07:23 36.4 C L 56 L 18 167/95 H 92 04/24/19 03:47 37.6 C H 60 18 128/77 93 Laboratory Results Laboratory Results - last 24 hr 04/23/19 04/23/19 04/24/19 16:29 20:59 07:34 POC Glucose 115 H 81 98 04/24/19 11:25 POC Glucose 126 H Medications Administered Current Inpatient Medications Acetaminophen (Tylenol) 650 mg PO Q4H PRN PRN Reason: Pain or Fever Stop: 05/22/19 17:22 Last Admin: 04/22/19 22:18 Dose: 650 mg Documented by: Aspirin (Ecotrin Ectab) [facility] Stop: 05/23/19 08:59 Last Admin: 04/24/19 08:14 Dose: 81 mg Documented by: Atorvastatin Calcium (Lipitor) 80 mg PO QAM [facility] Stop: 05/23/19 08:59 Last Admin: 04/24/19 08:14 Dose: 80 mg Documented by: Carvedilol (Coreg) 6.25 mg PO BID [facility] Stop: 05/23/19 20:59 Last Admin: 04/24/19 08:11 Dose: 6.25 mg Documented by: Dextrose (Dextrose 50%) 25 - 50 ml IV UD PRN; Protocol PRN Reason: Hypoglycemia Protocol Stop: 05/22/19 17:22 Glucagon (Glucagen) 1 mg SQ UD PRN; Protocol PRN Reason: Hypoglycemia Protocol Stop: 05/22/19 17:22 Glucose (Glucose 40%) 15 - 30 gm PO UD PRN; Protocol PRN Reason: Hypoglycemia Protocol Stop: 05/22/19 17:22 Glucose (Dex4 Glucose) 4 - 8 tabs PO UD PRN; Protocol PRN Reason: Hypoglycemia Protocol Stop: 05/22/19 17:22 Heparin Sodium (Porcine) (Heparin Sodium (Porcine)) 5,000 units SQ Q8 [facility] Stop: 05/22/19 21:59 Last Admin: 04/24/19 05:22 Dose: Not Given Documented by: Insulin Aspart (Novolog Flexpen) 0 units SC ACHS [facility] Stop: 05/22/19 17:22 Last Admin: 04/24/19 09:36 Dose: Not Given Documented by: Lisinopril (Zestril) 10 mg PO BID [facility] Stop: 05/22/19 17:22 Last Admin: 04/24/19 08:14 Dose: 10 mg Documented by: Miscellaneous (Carbohydrates For Hypoglycemia) 15 - 30 gm PO UD PRN PRN Reason: Hypoglycemia Treatment Stop: 05/22/19 17:22
--- NOTE | 2019-04-24 12:25 | Hospitalist Progress Note ---
Date of Service April 24, 2019 Assessment & Plan (1) Chest pain: Pt presents with c/o intermittent CP x 2 weeks. Last night with lightheaded sensation with CP. CHEST PAIN: Risk factors: HTN, hyperlipidemia, tobacco use. Hx of negative exercise stress test in 2010 EKG: sinus bradycardia, T wave inversion in V4 - 6; no change compared to 04/10 EKG. -Trop x 2 negative. Had a brief episode of A flutter ? - cardiology made aware -S/P Exercise Stress Echo on 04/23/19 - Negative -Continue with ASA, Atorvastatin, Lisinopril. Coreg 6.25 mg PO BID added during this admission by cardiology -Echo- EF 45-50%, Gd I diastolic dysfunction, Moderate LVH -Work up- CXR: Borderline cardiac enlargement. Otherwise no acute cardiopulmonary disease -Cardiology cleared for discharge (2) Hypertension: Elevated -Continue lisinopril 10 mg twice daily -Nitropaste every 6 hours -Monitor BP (3) PVC (premature ventricular contraction): Noted to have PCVs, Bigemini, Bradycardia with HR in high 40s -Started on coreg 6.25 po bid by cardiology -Monitored him overnight as started on coreg with hx of sinus bradycardia. Resting HR as low as high 40s, but overall staying in 50s. Will continue with coreg on discharge. (4) Diabetes mellitus, type II: A1c: 6.5 on 03/06/2018 -Hold metformin -NovoLog sliding scale per protocol (5) Dyslipidemia: -Continue atorvastatin 80 mg nightly (6) CKD (chronic kidney disease), stage III: Cr: 1.28 (baseline 1.2) -Monitor renal functions -Avoid nephrotoxic agents when possible (7) Tobacco chew use: -Cessation encouraged DVT Prophylaxis -Heparin SQ Full Code as per discussion with pt Follows with Dr Landaverde and [place] [facility] for routine care DISPOSITION Medical mx in progress For stress test today Subjective Patient denies any chest pain or shortness of breath since yesterday. 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 Heart rate as low as high 40s Physical Exam Physical Exam: GENERAL- AAOX3, No acute distress LUNGS- Air entry bilaterally equal. No rales, rhonchi, crackles, wheezes heard. HEART- Regular rate and rhythm. No murmurs ABDOMEN- Soft, non tender, non distended, Bowel sounds heard. EXTREMITIES- Good peripheral pulses, no edema Results & Data Vital Signs (Past 12 Hours) Vital Signs Temp Pulse Pulse Resp BP Pulse Ox 04/24/19 11:51 36.3 C L 58 L 24 124/82 92 04/24/19 08:00 55 L 63 04/24/19 07:23 36.4 C L 56 L 18 167/95 H 92 04/24/19 03:47 37.6 C H 60 18 128/77 93
--- NOTE | 2019-04-24 12:28 | Discharge Summary ---
Date of Service April 24, 2019 Admission HPI Per Admitting Provider Pt is 68 y/o M with PMH HTN, dyslipidemia, CKD III, DM II, tobacco use presented to ER with complaint of chest pain. Patient reports increased intermittent anterior mid chest pain for the past 2 weeks. Chest pain can occur with sitting and has been occurring 2-3 times a day. It is sometimes followed by paresthesias to his bilateral upper arms. Has not had any other associated symptoms until yesterday when he had chest pain and felt lightheaded. Denies any radiation of chest pain. Denies left arm pain, jaw pain, neck pain, diaphoresis, shortness of breath syncope, palpitations. Pt states initially he thought he was having acid reflux and tried Tums/Rolaids without relief. Patient has been having elevated blood pressures. He has been taking BP at home and home readings SBP 150-200. Patient was started on medication by a clinic. Patient is unsure of his BP meds however it appears that patient was prescribed benazepril 10 mg daily by [facility]. Patient had ER visit 04/10/2019 for hypertension and lisinopril was increased to 20mg daily. (It appears the patient is currently on lisinopril) patient denies any other BP med use. He did not have his BP meds today. Patient was at [facility] today and mentioned had chest pain and EKG was obtained there showing T wave inversion inferior and lateral leads. Patient was sent to ER. Patient reports was given 4 baby aspirin by EMS in route and states had resolution of his CP. No further CP while in ER. Patient reports chronic left shoulder pain and has been following with the [facility] and had x-rays taken recently, unsure of results. Pt reports has been taking Claritin-D recently. 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 Reports chronic cough productive white. Denies fever/chills, diaphoresis, N/V/D/C, FLEMING, vision changes, neck pain, SOB, orthopnea, palpitations, sore throat, choking, otalgia, rhinorrhea, abdominal pain, weakness, extremity weakness, extremity edema, rashes, urinary symptoms. Hx exercise stress test 2010: No inducible ischemia Principal Diagnosis 1. Chest pain, ruled out ischemia 2. Sinus bradycardia, PVCs, Bigemini SECONDARY DIAGNOSIS ON DISCHARGE 1. HTN 2. Dyslipidemia 3. CKD III 4. Tobacco abuse disorder Discharge Exam GENERAL- AAOX3, No acute distress LUNGS- Air entry bilaterally equal. No rales, rhonchi, crackles, wheezes heard. HEART- Regular rate and rhythm. No murmurs ABDOMEN- Soft, non tender, non distended, Bowel sounds heard. EXTREMITIES- Good peripheral pulses, no edema Discharge Data Allergies Allergy/AdvReac Type Severity Reaction Status Date / Time lisinopril Allergy Severe DIZZY, Verified 04/22/19 12:36 ERECTILE DYSFUNCTION SPRUCE TREES Allergy Severe SWELLING Uncoded 04/22/19 12:36 Consultations 04/22/19 13:40 ED Decision to Admit Stat 04/22/19 17:23 Consult Cardiology Routine Hospital Course (1) Chest pain: Pt presents with c/o intermittent CP x 2 weeks. Last night with lightheaded sensation with CP. CHEST PAIN: Risk factors: HTN, hyperlipidemia, tobacco use. Hx of negative exercise stress test in 2010 EKG: sinus bradycardia, T wave inversion in V4 - 6; no change compared to 04/10 EKG. -Trop x 2 negative. Had a brief episode of A flutter ? - cardiology made aware -S/P Exercise Stress Echo on 04/23/19 - Negative -Continue with ASA, Atorvastatin, Lisinopril. Coreg 6.25 mg PO BID added during this admission by cardiology -Echo- EF 45-50%, Gd I diastolic dysfunction, Moderate LVH -Work up- CXR: Borderline cardiac enlargement. Otherwise no acute cardiopulmonary disease -Cardiology cleared for discharge (2) Hypertension: Elevated -Continue lisinopril 10 mg twice daily -Added coreg 6.25 mg BID per cardiology for PVCs, bigemini -Monitor BP (3) PVC (premature ventricular contraction): Noted to have PCVs, Bigemini, Bradycardia with HR in high 40s -Started on coreg 6.25 po bid by cardiology -Monitored him overnight as started on coreg with hx of sinus bradycardia. Resting HR as low as high 40s, but overall staying in 50s. Will continue with coreg on discharge. (4) Diabetes mellitus, type II: A1c: 6.5 on 03/06/2018 -Hold metformin -NovoLog sliding scale per protocol (5) Dyslipidemia: -Continue atorvastatin 80 mg nightly (6) CKD (chronic kidney disease), stage III: Cr: 1.28 (baseline 1.2) -Monitor renal functions -Avoid nephrotoxic agents when possible (7) Tobacco chew use: -Cessation encouraged DVT Prophylaxis -Heparin SQ Full Code as per discussion with pt Follows with Dr Landaverde and [facility] for routine care DISPOSITION Cleared by cardiology for discharge Ok to discharge home Total Time Total Time Spent Total Time Spent (In Minutes): 35 minutes Discharge Plan Discharge Items Patient Disposition: Home - Self-Care Reason For Visit: CHEST PAIN,HTN Discharge Diagnosis: Chest pain, acute ischemia ruled out Discharge Goals: Decrease discomfort Activity: Resume your previous activity Non-emergency contact: Primary Care Provider Call non-emergency contact if: your symptoms worsen Follow-up/Referrals: Silas Landaverde MD [Primary Care Provider] - 04/30/19 10:45 am Diet: Low Sodium (2gm) Addtl Provider Instructions: MEDICATION CHANGES NEW MEDICATION- Coreg 6.25 mg PO twice a day Prescriptions: New carvedilol 6.25 mg Tablet 6.25 mg PO BID 30 Days Qty: 60 RF: 0 Continued metformin [Glucophage] 500 mg Tablet 500 mg PO BID RF: 0 atorvastatin 80 mg Tablet 80 mg PO QAM RF: 0 aspirin [Aspir-Low] 81 mg Tablet,Delayed Release (Dr/Ec) 81 mg PO QAM RF: 0 acetaminophen [Tylenol Extra Strength] 500 mg Tablet 500 mg PO QID PRN (Reason: Pain) RF: 0 [place]-3 Fish Oil 300-1,000 mg Capsule 1 cap PO BID RF: 0 Glucosamine Chondroitin 550-30-1 mg Capsule 1 cap PO BID RF: 0 potassium 99 mg Tablet 99 mg PO QAM RF: 0 lisinopril 10 mg Tablet 10 mg PO BID RF: 0 Stand-Alone Forms: Call Back Authorization, [facility] Discharge Orders: Discharge Order (Routine); Ordered 04/24/19 Ordered By: Na Zuniga Admission Data Admit Date/Time: 04/22/19 15:31 Attending Provider: Na Zuniga Admit Provider: Favian Pantoja Primary Care Provider: Silas Landaverde Other Providers: Favian Pantoja ; Brian Lambert Service: Telemetry Medical
== END 2019-04-24 14:37 | disposition home or self-care (01) ==
LOC: ED 11:46 → 2W 11:46

== ENCOUNTER 2020-09-28 16:43 | Inpatient (IN) ==
[2020-09-28] MEDS ORDERED: OPTIRAY 320 125ml IV ONE (17:00)
--- NOTE | 2020-09-28 17:14 | CT Scan Report ---
CT OF THE HEAD WITHOUT CONTRAST CLINICAL HISTORY: Stroke evaluation. COMPARISON STUDY: No previous studies for comparison. TECHNIQUE: Helical axial images of the head were obtained without IV contrast. Automated exposure con trol was utilized for the study. A dose lowering technique was utilized adhering to the principles o f ALARA. FINDINGS: No acute intracranial hemorrhage, midline shift or mass effect is present. The ventricular system is unremarkable. The basal cisterns are patent. No extra-axial collections are present. There are no findings to suggest acute dural sinus thrombosis or acute territorial infarct. No significant calvarial abnormalities are present. Visualized portions of the sinuses and mastoid air cells are tomas ar. IMPRESSION: No acute intracranial findings. ACT 112: Negative or not required by law. Electronically signed by: Fausto Bermudez M.D. 09/28/2020 5:12 PM
--- NOTE | 2020-09-28 17:22 | Emergency Department Note ---
Impression & Plan TIA (transient ischemic attack), VBI (vertebrobasilar insufficiency), Vertigo, Bradycardia ED Provider Note NAME: DIAMANTE MCKEON AGE: 69 SEX: M : 1950 ARRIVES VIA: Walk-In INFORMANT: Patient, ED PROVIDER(S): Be Thao DO CHIEF COMPLAINT: Vertigo HPI: The patient is a 69-year-old male who presented to the emergency department for an evaluation of weakness. The patient was brought directly through triage and made a stroke alert by the triage nurse. The patient presented to the emergency department with his significant other as well as his daughter who is a registered nurse. The patient started having dizziness and vertigo. He started having feeling that the room spinning but then when he would try to walk he was falling to the right. He denies having any headache. He does describe some chest pain which he has been experiencing for approximately 1 month. He states today his chest pain was getting worse but he also noticed that he was having dizziness and when he was walking he would fall the right. These episodes were associated with significant diaphoresis. His symptoms began at around 4:00 this morning when he awoke because of his dog. He made his significant other aware of the symptoms. He called the [place] [facility]. He comes to the emergency department through triage with his daughter for concerns of central nervous system causes for his vertigo. He states he is never had the symptoms before. He states the symptoms have significantly improved. He denies having any fever chills. He d enies having any recent falls. ROS: See above HPI for pertinent positives & negatives. A total of 10 systems reviewed and were otherwise negative. PAST MEDICAL HISTORY: See Below PAST SURGICAL HISTORY: See Below FAMILY HISTORY: See Below SOCIAL HISTORY: See Below HOME MEDICATIONS: See Below ALLERGIES: See Below VITALS: See Below PHYSICAL EXAMINATION: GENERAL: Patient is awake alert in no acute distress patient is resting comfortably and showing no signs of anxiety EYES: The conjunctivae are clear. The pupils are round and reactive. No nystagmus was elicited. EARS, NOSE, MOUTH AND THROAT: The nose is without any evidence of any deformity. NECK: The neck is nontender and supple. RESPIRATORY: Normal respiratory effort is noted there is no evidence of wheezing rhonchi or rales CARDIOVASCULAR: Regular rate and rhythm noted there no murmurs rubs or gallops normal S1 normal S2. GASTROINTESTINAL: The abdomen is soft. Abdomen is nontender. MUSCULOSKELETAL/EXTREMITIES: There is no evidence of gross deformity full range of motion is noted in the hips and shoulders. SKIN: There is no obvious evidence of any rash. There are no petechiae, pallor or cyanosis noted. NEUROLOGIC: Patient is awake alert and oriented x3 strength is symmetric patellar reflexes are 2+ bilaterally. Gait was steady. MEDICAL DECISION MAKING: The patient is a 69-year-old male who presented to the emergency department for an evaluation of stroke evaluation vertigo. The patient was noted to have vertigo symptoms earlier but was recognized to be having ataxia by his daughter who is a registered nurse. The patient was falling to the right mostly. His symptoms seem to wax and wane. He also complained of chest discomfort. He states the chest discomfort has been ongoing for many weeks however the vertigo symptoms only started this morning. He was made a stroke alert from triage. He was not a candidate for TPA because his symptoms began at approximately 0400 this morning. I discussed the patient's laboratory and radiographic studies with him. He was not found to have any acute disease on noncontrast CT but his CT angiography did show some abnormalities it could be related to vertebrobasilar insufficiency and posterior circulation abnormalities. For this reason I discussed his case with the on-call [facility] hospitalist. I do feel the patient may require further work-up including MRI of the brain echocardiogram and further TIA/stroke work-up. The patient was feeling much better on subsequent reevaluation. His pulse rate continued to drop into a bradycardic range however his blood pressure was stable and the patient was essentially asymptomatic. Triage Nursing notes reviewed. Prior medical records reviewed Vital Signs: reviewed and remarkable for bradycardia. Differential diagnosis: Infection, dehydration, metabolic abnormality, hypo/hyperglycemia, electrolyte disturbance, anemia, hypoxia, cardiac sources, intracerebral event, toxicologic, neurologic, as well as other pathologies. ER treatment provided: See below Diagnostics interpreted by me: ECG: EKG was obtained in the emergency department. My interpretation is marked sinus bradycardia at [address] segment abnormalities were noted. There was no ectopy. This was compared to a tracing from April 23, 2019. The ventricular rate has slowed otherwise no significant changes were noted. Cardiac Monitoring: An order was placed for continuous cardiac monitoring. The monitor shows a rate of 38 bpm with sinus bradycardia rhythm. Laboratory studies: As stated above and show below. Imaging studies: See below Consultation(s): 180: I discussed this case with Dr. Escoto. ED COURSE: Procedures: none PDMP:reviewed and no issues Critical Care: I have personally spent greater than 40 minutes of critical care time in the direct management of this patient. This includes bedside care, interpretation of diagnostic studies, and testing, discussion with consultants, patient, and family members, and other required patient management activities. This 40 minutes is in excess of all separately billable procedures. Past Med/Surg History Medical History CKD (chronic kidney disease), stage III Diabetes mellitus, type II Dyslipidemia Encounter for tobacco use cessation counseling Hypertension Injury of extensor tendon of left hand Open finger fracture Tobacco chew use Surgical History History of carpal tunnel surgery Family History Father Coronary heart disease [place] at age 80 Social History Smoking Status: Former smoker Tobacco Type: Cigarettes Cigarettes Per Day: 20, chew-pouch a week; Second Hand Exposure: No; Hx Alcohol Use: No Hx Substance Use: No Preferred Language: Greek Communication Ability: Effective Security Architect Required: No Beliefs That Will Affect Care: None marital status: Current Living Situation: Spouse current occupational status: retired Feels Safe at Home: Yes Assistive Devices: Hearing Aid - Right Allergies Allergies Allergy/AdvReac Type Severity Reaction Status Date / Time lisinopril Allergy Severe DIZZY, Verified 04/22/19 12:36 ERECTILE DYSFUNCTION SPRUCE TREES Allergy Severe SWELLING Uncoded 04/22/19 12:36 Home Meds Home Medications Medication Instructions Recorded Confirmed Glucosamine Chondroitin 1 cap PO BID 04/10/19 04/22/19 [place]-3 Fish Oil 1 cap PO BID 04/10/19 04/22/19 acetaminophen [Tylenol Extra 500 mg PO QID PRN 04/10/19 04/22/19 Strength] aspirin [Aspir-Low] 81 mg PO QAM 04/10/19 04/22/19 atorvastatin 80 mg PO QAM 04/10/19 04/22/19 metformin [Glucophage] 500 mg PO BID 04/10/19 04/22/19 lisinopril 10 mg PO BID 04/22/19 04/22/19 potassium 99 mg PO QAM 04/22/19 04/22/19 Results & Data (ED) Vital Signs Vital Signs - 24 hr 09/28/20 16:50 09/28/20 17:23 09/28/20 18:07 Temperature 36.4 C L Temperature Source Oral Pulse Rate 48 L Pulse Rate [Right Finger] 47 L 42 L Respiratory Rate 20 20 18 Respiratory Effort / Characteristics Non-Labored Non-Labored Spontaneous Non-Labored Spontaneous Respiratory Depth Normal Normal Normal Respiratory Pattern Regular Blood Pressure 167/89 H Blood Pressure [Left Arm] 154/101 H Blood Pressure [Right Arm] 130/85 Blood Pressure Mean 115 Blood Pressure Mean [Left Arm] 118 Blood Pressure Mean [Right Arm] 100 Blood Pressure Position [Left Arm] Sitting Blood Pressure Position [Right Arm] Sitting Pulse Oximetry 97 99 96 Oxygen Delivery Method Room Air Room Air Room Air Sepsis Recent Fever Within 48 Hours No Sepsis New/Unexplained Change in Mental Status N/A Sepsis Action Taken by Nursing No Action Required Home Medications Current Medication List: was personally reviewed by me Laboratory Data Attestation: I reviewed the patient's lab results. Result diagrams: 09/28/20 17:18 09/28/20 17:18 Lab Results 09/28/20 09/28/20 09/28/20 Range/Units 17:18 17:18 17:18 WBC 6.23 (4.8-10.8) K/uL RBC 4.42 L (4.7-6.1) M/uL Hgb 13.7 L (14.0-18.0) g/dL Hct 42.2 (42-52) % MCV 95.5 (80-100) fL MCH 31.0 (25-34) pg MCHC 32.5 (32-36) g/dL RDW Std Deviation 46.4 H (36.4-46.3) fL RDW Coeff of Jeny 13.3 (11.5-14.5) % Plt Count 254 (130-400) K/uL MPV 10.0 (7.4-10.4) fL Immature Gran % (Auto) 0.2 % Neut % (Auto) 71.9 % Lymph % (Auto) 18.3 % Kitt[place] % (Auto) 7.2 % Eos % (Auto) 1.9 % Baso % (Auto) 0.5 % Neut # (Auto) 4.48 (1.4-6.5) K/uL Lymph # (Auto) 1.14 L (1.2-3.4) K/uL Kitt[place] # (Auto) 0.45 (0.11-0.59) K/uL Eos # (Auto) 0.12 (0-0.5) K/uL Baso # (Auto) 0.03 (0-0.2) K/uL Immature Gran # (Auto) 0.01 (0.00-0.02) K/uL PT 11.4 (9.0-12.0) Seconds INR 1.1 (0.9-1.1) APTT 28.9 (21.0-31.0) Seconds PTT Ratio 1.0 Sodium 134 L (136-145) mmol/L Potassium 4.1 (3.5-5.1) mmol/L Chloride 103 (98-107) mmol/L Carbon Dioxide 29 (21-32) mmol/L Anion Gap 2.0 L (3-11) BUN 21 H (7-18) mg/dl Creatinine 1.31 (0.6-1.4) mg/dl Est Cr Clr Drug Dosing 50.0 ml/min Est GFR ( Amer) 63.0 Est GFR (Non-Af Amer) 54.4 BUN/Creatinine Ratio 16.4 (10-20) Glucose 127 H (70-99) mg/dl Calcium 8.4 L (8.5-10.1) mg/dl Magnesium 1.8 (1.8-2.4) mg/dl Total Bilirubin 0.4 (0.2-1) mg/dl AST 18 (15-37) U/L ALT 38 (12-78) U/L Alkaline Phosphatase 50 (45-117) U/L Troponin I < 0.015 (0-0.045) ng/ml Total Protein 6.7 (6.4-8.2) gm/dl Albumin 3.2 L (3.4-5.0) gm/dl Globulin 3.5 (2.5-4.0) gm/dl Albumin/Globulin Ratio 0.9 (0.9-2) Administered Medications Discontinued Medications Ioversol (Optiray 320 125ml) 117 ml IV ONCE ONE Stop: 09/28/20 17:01 Last Admin: 09/28/20 17:00 Dose: 117 ml Documented by: [id number] Imaging Data Radiologist's Impression: Patient: DIAMANTE MCKEON Admit Date: 09/28/20 MR#: [id number] Address1: [address] Acct ID:[id number] Address2: Date: 1950 [facility] Zip: [place] [address] Age: 69 Location: ED Sex: M Room/Bed: Att Phy: Diagnosis: DIZZY, CHEST PAIN, BALANCE OFF, SPEECH SLURRED Aixa Phy: Silas Landaverde MD Service Date: 09/28/20 [facility] Phy: Interpreting Phy: Fausto Bermudez MD Admit Phy: Ordering Phy: Be Thao DO cc: ~ CT ANGIOGRAPHY OF THE NECK WITH CONTRAST CLINICAL HISTORY: Stroke evaluation COMPARISON STUDY: No previous studies for comparison. Technique: CT angiography of the carotid and vertebral arteries was obtained using [facility] 320 IV and 3D reconstruction on an independent workstation. NASCET criteria was utilized. Automated exposure control was utilized for the study. A dose lowering technique was utilized adhering to the principles of ALARA. CT DOSE: 1159.77 mGy.cm Findings: There is mild medialization of the right vocal cord. Lung apices are unremarkable. There is no cervical spine fracture. Multilevel degenerative changes within the cervical spine are noted. Epiglottis is normal. There is no cervical lymphadenopathy. There is moderate plaque within the proximal left internal carotid artery with mild stenosis of 30%. There is mild plaque within the proximal right internal carotid artery without significant stenosis. The left vertebral artery is dominant and patent. There is mild stenosis at the origin the right vertebral artery. The right vertebral artery is diminutive. No dissection within the major vessels of the neck is noted. IMPRESSION: 1. Moderate calcified plaque within the proximal left internal carotid artery with mild stenosis at the vessel origin. 2. Mild stenosis at the origin of the right vertebral artery. 3. Dominant, patent left vertebral artery. ACT 112: Negative or not required by law. Electronically signed by: Fausto Bermudez M.D. 09/28/2020 5:20 PM Dictated: 09/28/201713 Transcribed: 09/28/201713 Patient: DIAMANTE MCKEON Admit Date: 09/28/20 MR#: [id number] Address1: [address] Acct ID:[id number] Address2: Date: 1950 [facility] Zip: [place] [address] Age: 69 Location: ED Sex: M Room/Bed: Att Phy: Diagnosis: DIZZY, CHEST PAIN, BALANCE OFF, SPEECH SLURRED Aixa Phy: Silas Landaverde MD Service Date: 09/28/20 [facility] Phy: Interpreting Phy: Fausto Bermudez MD Admit Phy: Ordering Phy: Be Thao DO cc: ~ CTA ANGIOGRAPHY OF THE HEAD CLINICAL HISTORY: Stroke evaluation. COMPARISON STUDY: No previous studies for comparison. TECHNIQUE: Helical axial images of the head were obtained following uneventful intravenous administration of 117 cc of Optiray 320. Sagittal and coronal reconstructions were viewed as well as maximal intensity projections on an independent 3-D workstation. Automated exposure control was utilized for the study. A dose lowering technique was utilized adhering to the principles of ALARA. FINDINGS: No acute intracranial hemorrhage, midline shift or mass effect is present. Brain volume is normal. Ventricular system is normal. Basilar cisterns are patent. There are no extra-axial collections. There is mild to moderate plaque within the bilateral cavernous carotids without significant stenosis. No central vessel occlusion is noted. There is no intracranial aneurysm. persistence of the left posterior cerebral artery is noted. There is moderate stenosis of this vessel. There is severe stenosis of the proximal right P2 segment with asymmetric decreased caliber of the right P2 segment branches. IMPRESSION: 1. Severe stenosis of the proximal right P2 segment with asymmetric decreased caliber of the branches of the right posterior cerebral artery. 2. Intact anterior circulation. 3. persistence of the left posterior cerebral artery with moderate stenosis of this vessel. ACT 112: Negative or not required by law. Electronically signed by: Fausto Bermudez M.D. 09/28/2020 5:27 PM Dictated: 09/28/201721 Transcribed: 09/28/201721 Patient: DIAMANTE MCKEON Admit Date: 09/28/20 MR#: [id number] Address1: [address] Acct ID:[id number] Address2: Date: 1950 [facility] Zip: [place] [address] Age: 69 Location: ED Sex: M Room/Bed: Att Phy: Diagnosis: DIZZY, CHEST PAIN, BALANCE OFF, SPEECH SLURRED Aixa Phy: Silas Landaverde MD Service Date: 09/28/20 [facility] Phy: Interpreting Phy: Fausto Bermudez MD Admit Phy: Ordering Phy: Be Thao DO cc: ~ CT OF THE HEAD WITHOUT CONTRAST CLINICAL HISTORY: Stroke evaluation. COMPARISON STUDY: No previous studies for comparison. TECHNIQUE: Helical axial images of the head were obtained without IV contrast. Automated exposure control was utilized for the study. A dose lowering techni que was utilized adhering to the principles of ALARA. FINDINGS: No acute intracranial hemorrhage, midline shift or mass effect is present. The ventricular system is unremarkable. The basal cisterns are patent. No extra-axial collections are present. There are no findings to suggest acute dural sinus thrombosis or acute territorial infarct. No significant calvarial abnormalities are present. Visualized portions of the sinuses and mastoid air cells are clear. IMPRESSION: No acute intracranial findings. ACT 112: Negative or not required by law. Electronically signed by: Fausto Bermudez M.D. 09/28/2020 5:12 PM Dictated: 09/28/201709 Transcribed: 09/28/201709 Patient: DIAMANTE MCKEON Admit Date: 09/28/20 MR#: [id number] Address1: [facility] [address] Acct ID:[id number] Address2: Date: 1950 [facility] Zip: [place] [address] Age: 69 Location: ED Sex: M Room/Bed: Att Phy: Diagnosis: DIZZY, CHEST PAIN, BALANCE OFF, SPEECH SLURRED Aixa Phy: Silas Landaverde MD Service Date: 09/28/20 [facility] Phy: Interpreting Phy: Fausto Bermudez MD Admit Phy: Ordering Phy: Be Thao DO cc: ~ XR chest 1V portable CLINICAL HISTORY: stroke alert COMPARISON STUDY: Chest radiograph April 21, 2019. FINDINGS: Lung volumes are normal. Lungs are clear. There is no pneumothorax or pleural effusion. Cardiac size is stable. Mediastinal contours are normal. There is no evidence for pulmonary edema. IMPRESSION: No acute cardiopulmonary findings. No change in appearance of the chest. ACT 112: Negative or not required by law. Electronically signed by: Fausto Bermudez M.D. 09/28/2020 6:00 PM Dictated: 09/28/201799 Transcribed: 09/28/201799 Blood Pressure Blood Pressure Findings: Normal blood pressure Discharge Plan Visit Data Chief Complaint: Stroke/CVA Symptoms Stated Complaint: DIZZY, CHEST PAIN, BALANCE OFF, SPEECH, SWEATING ED Provider: Be Thao Discharge Problem: TIA (transient ischemic attack), VBI (vertebrobasilar insufficiency), Vertigo, Bradycardia Patient Disposition: Being Evaluated by Hospitalist Condition: Good Forms Stand Alone Forms: [email or web address] Prescriptions Prescriptions: No Action metformin [Glucophage] 500 mg Tablet 500 mg PO BID RF: 0 atorvastatin 80 mg Tablet 80 mg PO QAM RF: 0 aspirin [Aspir-Low] 81 mg Tablet,Delayed Release (Dr/Ec) 81 mg PO QAM RF: 0 acetaminophen [Tylenol Extra Strength] 500 mg Tablet 500 mg PO QID PRN (Reason: Pain) RF: 0 [place]-3 Fish Oil 300-1,000 mg Capsule 1 cap PO BID RF: 0 Glucosamine Chondroitin 550-30-1 mg Capsule 1 cap PO BID RF: 0 potassium 99 mg Tablet 99 mg PO QAM RF: 0 lisinopril 10 mg Tablet 10 mg PO BID RF: 0 Referrals Referrals: Silas Landaverde MD [Primary Care Provider] -
--- NOTE | 2020-09-28 17:22 | CT Scan Report ---
CT ANGIOGRAPHY OF THE NECK WITH CONTRAST CLINICAL HISTORY: Stroke evaluation COMPARISON STUDY: No previous studies for comparison. Technique: CT angiography of the carotid and vertebral arteries was obtained using [employer] 320 IV and 3D reconstruction on an independent workstation. NASCET criteria was utilized. Automated exposure c ontrol was utilized for the study. A dose lowering technique was utilized adhering to the principles of ALARA. CT DOSE: 1159.77 mGy.cm Findings: There is mild medialization of the right vocal cord. Lung apices are unremarkable. There is no cervical spine fracture. Multilevel degenerative changes within the cervical spine are noted. Epi glottis is normal. There is no cervical lymphadenopathy. There is moderate plaque within the proximal left internal carotid artery with mild stenosis of 30%. There is mild plaque within the proximal rig ht internal carotid artery without significant stenosis. The left vertebral artery is dominant and pa tent. There is mild stenosis at the origin the right vertebral artery. The right vertebral artery is diminutive. No dissection within the major vessels of the neck is noted. IMPRESSION: 1. Moderate calcified plaque within the proximal left internal carotid artery with mild stenosis at t he vessel origin. 2. Mild stenosis at the origin of the right vertebral artery. 3. Dominant, patent left vertebral artery. ACT 112: Negative or not required by law. Electronically signed by: Fausto Bermudez M.D. 09/28/2020 5:20 PM
--- NOTE | 2020-09-28 17:28 | CT Scan Report ---
CTA ANGIOGRAPHY OF THE HEAD CLINICAL HISTORY: Stroke evaluation. COMPARISON STUDY: No previous studies for comparison. TECHNIQUE: Helical axial images of the head were obtained following uneventful intravenous administr ation of 117 cc of Optiray 320. Sagittal and coronal reconstructions were viewed as well as maximal i ntensity projections on an independent 3-D workstation. Automated exposure control was utilized for the study. A dose lowering technique was utilized adhering to the principles of ALARA. FINDINGS: No acute intracranial hemorrhage, midline shift or mass effect is present. Brain volume is normal. Ventricular system is normal. Basilar cisterns are patent. There are no extra-axial collectio ns. There is mild to moderate plaque within the bilateral cavernous carotids without significant sten osis. No central vessel occlusion is noted. There is no intracranial aneurysm. persistence of t he left posterior cerebral artery is noted. There is moderate stenosis of this vessel. There is sever e stenosis of the proximal right P2 segment with asymmetric decreased caliber of the right P2 segment branches. IMPRESSION: 1. Severe stenosis of the proximal right P2 segment with asymmetric decreased caliber of the branches of the right posterior cerebral artery. 2. Intact anterior circulation. 3. persistence of the left posterior cerebral artery with moderate stenosis of this vessel. ACT 112: Negative or not required by law. Electronically signed by: Fausto Bermudez M.D. 09/28/2020 5:27 PM
[2020-09-28 17:39] LABS: Basophils # (auto) 0.03 K/uL (0-0.2); Basophils % (auto) 0.5 %; Eosinophils # (auto) 0.12 K/uL (0-0.5); Eosinophils % (auto) 1.9 %; Hematocrit (blood only) 42.2 % (42-52); Hemoglobin 13.7 g/dL (14.0-18.0); Immature Granulocytes # (auto) 0.01 K/uL (0.00-0.02); Immature Granulocytes % (auto) 0.2 %; Lymphocytes # (auto) 1.14 K/uL (1.2-3.4); Lymphocytes % (auto) 18.3 %; Mean Corpuscular Hgb Conc 32.5 g/dL (32-36); Mean Corpuscular Volume 95.5 fL (80-100); Monocytes # (auto) 0.45 K/uL (0.11-0.59); Monocytes % (auto) 7.2 %; Neutrophils # (auto) 4.48 K/uL (1.4-6.5); Neutrophils % (auto) 71.9 %; Platelet Count 254 K/uL (130-400); RDW Coefficient of Variation 13.3 % (11.5-14.5); RDW Standard Deviation 46.4 fL (36.4-46.3); Red Blood Count 4.42 M/uL (4.7-6.1); White Blood Count 6.23 K/uL (4.8-10.8)
[2020-09-28 17:58] LABS: Alanine Aminotransferase 38 U/L (12-78); Albumin Level 3.2 gm/dl (3.4-5.0); Aspartate Aminotransferase 18 U/L (15-37); BUN Creatinine Ratio 16.4 (10-20); Blood Urea Nitrogen 21 mg/dl (7-18); Calcium 8.4 mg/dl (8.5-10.1); Carbon Dioxide 29 mmol/L (21-32); Chloride 103 mmol/L (98-107); Est GFR (Non-African American) 54.4; Glucose 127 mg/dl (70-99); Magnesium 1.8 mg/dl (1.8-2.4); Potassium 4.1 mmol/L (3.5-5.1); Sodium 134 mmol/L (136-145)
[2020-09-28 18:02] LABS: INR 1.1 (0.9-1.1); Partial Thromboplastin Time 28.9 Seconds (21.0-31.0); Prothrombin Time 11.4 Seconds (9.0-12.0)
--- NOTE | 2020-09-28 18:02 | XRay Report ---
XR chest 1V portable CLINICAL HISTORY: stroke alert COMPARISON STUDY: Chest radiograph April 21, 2019. FINDINGS: Lung volumes are normal. Lungs are clear. There is no pneumothorax or pleural effusion. Car diac size is stable. Mediastinal contours are normal. There is no evidence for pulmonary edema. IMPRESSION: No acute cardiopulmonary findings. No change in appearance of the chest. ACT 112: Negative or not required by law. Electronically signed by: Fausto Bermudez M.D. 09/28/2020 6:00 PM
[2020-09-28 18:03] LABS: Albumin Globulin Ratio 0.9 (0.9-2); Alkaline Phosphatase 50 U/L (45-117); Bilirubin,Total 0.4 mg/dl (0.2-1); Globulin 3.5 gm/dl (2.5-4.0); Total Protein 6.7 gm/dl (6.4-8.2); Troponin I < 0.015 ng/ml (0-0.045)
[2020-09-28] MEDS ORDERED: SODIUM CHLORIDE 0.9% 1000ML 500 ML IV ONE (18:19)
[2020-09-28] MEDS ORDERED: NITROGLYCERIN SL 0.4 MG/TAB TAB SL PRN (19:05)
[2020-09-28] MEDS ORDERED: ACETAMINOPHEN 325 MG TAB PO PRN (19:05)
[2020-09-28] MEDS ORDERED: MAGNESIUM HYDROXIDE SUSP 30 ML UDC PO PRN (19:05)
[2020-09-28] MEDS ORDERED: ALUMINUM/MAGNESIUM SUSP 30 ML UDC PO PRN (19:05)
--- NOTE | 2020-09-28 19:14 | History & Physical Report ---
Date of Service September 28, 2020 Assessment & Plan (1) TIA (transient ischemic attack): This is a 68-year-old male with multiple medical complications presented to ER with complaint of dizzy spells and vertigo started around 4 AM in the morning Alert was called in the ER, patient was outside the therapeutic window of TPA- patient presented to ER approximately [address] head noncontrast shows no acute stroke, CTA of head and neck shows left internal carotid artery disease, posterior cerebral artery stenosis. MRI of brain, no acute CVA Patient will be continue to monitor in telemetry to rule out any arrhythmia Patient will be continued with aspirin, statin, will discuss with neurology for addition of Plavix Check fasting lipid panel in a.m. goal LDL less than 70 (2) VBI (vertebrobasilar insufficiency): CTA of neck shows: Severe stenosis of the proximal right P2 segment with asymmetric decreased caliber of the branches of the right posterior cerebral artery. -Possible causing patient's symptoms of dizzy spell/vertigo? MRI of brain acute CVA As patient is symptomatic with possible posterior cerebral artery stenosis-we will have vascular surgery consulted for input Bradycardia: Heart rate in low 30s40s/at home patient reported episodes of palpitation, followed by drenching sweats TSH level within normal limit Lyme titer negative not on any AV latisha agent Continue to monitor in telemetry, Transient chest heaviness: No symptom at this point, denies of any chest heaviness or shortness of breath with strenuous activity recently Follow in telemetry, resting echo ordered Cardiology consulted. CKD stage III: Creatinine at baseline Mild hyponatremia: Ordered for gentle IV hydration, check orthostatic vitals CODE STATUS: Full code DVT prophylaxis: Subcu heparin Disposition: Expected to be discharged home when medically stable History of Present Illness Chief Complaint: Dizzy spell, lightheadedness Primary Care Provider: Silas Landaverde MD This is a 69-year-old male with past medical history of hypertension/CKD stage III, type 2 diabetes, presented to the ER with complaint of vertigo, lightheadedness symptoms started around 4 AM in the morning. Patient reports waking up with severe dizzy spell lightheadedness, to the point he could not stand up, leaning to his right side, Had nausea, had episode of vomiting on his way to ER. Denies of any shortness of breath, experienced central chest heaviness transiently. No blurred vision, no weakness or paresthesia in any part of the body, no slurred speech or effusion. Patient was brought to the ER by her daughter visit registered nurse at [facility] in late afternoon. Stroke alert was called, patient was found outside TPA window. Patient's feeling of dizzy spell gradually improved after few hours, still having a gait disturbance while walking. Patient noted to be bradycardic heart rate dropping down to 30s/40s-. Patient reports experiencing palpitations on and off at nighttime in the past several weeks,. Denies of bleeding discharge exertion, at baseline patient is very active, worked on his yard yesterday, chopping foods, mowing grass. Did not had any symptoms of shortness of breath chest heaviness dizzy spell or palpitation. Allergies Allergy/AdvReac Type Severity Reaction Status Date / Time lisinopril Allergy Severe Cough, Verified 09/28/20 18:32 breathing issues and dizziness SPRUCE TREES Allergy Severe Difficulty Uncoded 09/28/20 18:32 Breathing, swelling Home Medications Home Medications Medication Instructions Recorded Confirmed Type Glucosamine Chondroitin 1 cap PO HS 04/10/19 09/28/20 History [facility]-3 Fish Oil 1 cap PO HS 04/10/19 09/28/20 History acetaminophen [Tylenol Extra 1,000 mg PO Q6H PRN 04/10/19 09/28/20 History Strength] atorvastatin 80 mg PO QAM 04/10/19 09/28/20 History metformin [Glucophage] 500 mg PO BID 04/10/19 09/28/20 History aspirin [Aspirin Low Dose] 81 mg PO QAM 09/28/20 09/28/20 History carvedilol 6.25 mg PO BID 09/28/20 09/28/20 History fluticasone propionate [Flovent 2 puff INHALATION BID PRN 09/28/20 09/28/20 History HFA] Past Med/Surg History Medical History CKD (chronic kidney disease), stage III Diabetes mellitus, type II Dyslipidemia Encounter for tobacco use cessation counseling Hypertension Injury of extensor tendon of left hand Open finger fracture Tobacco chew use Surgical History History of carpal tunnel surgery Family History Father Coronary heart disease [place] at age 80 Social History Smoking Status: Former smoker Tobacco Type: Cigarettes Cigarettes Per Day: 20, chew-pouch a week; Second Hand Exposure: No; Hx Alcohol Use: No Hx Substance Use: No Preferred Language: Citizen Of [place] Communication Ability: Effective Hourly Sales Staff Required: No Beliefs That Will Affect Care: None marital status: Current Living Situation: Spouse current occupational status: retired Feels Safe at Home: Yes Assistive Devices: Hearing Aid - Right Review of Systems Review of Systems: All systems reviewed & are unremarkable except as noted in HPI & below Neurologic: + gait abnormality, + unsteadiness and + dizziness Physical Exam Constitutional: WD/WN, vitals as above well developed; no acute distress Eyes: PERRL, conjunctivae normal, anicteric sclerae ENMT: external ear and nose normal, oropharynx normal Neck: trachea midline, no thyromegaly Respiratory: normal respiratory effort, lungs clear to auscultation Cardiovascular: RRR, no murmur, no edema Gastrointestinal (Abdomen): normal bowel sounds, soft, nontender, no hepatosplenomegaly Musculoskeletal: no cyanosis or clubbing, extremities motor strength 5/5 Skin: no rashes, warm and dry Neurologic: patellar DTR's 2+ bilat, sensation intact and PERRL, EOMI, accommodation nl, no face palsy, no dysarthria Psychiatric: A+Ox3, euthymic affect Results & Data Results & Data ([facility]) Vital Signs (Past 12 Hours) Vital Signs Temp Pulse Pulse Resp BP BP BP 09/28/20 19:00 35 L 16 09/28/20 18:32 40 L 18 09/28/20 18:31 40 L 13 145/83 H 09/28/20 18:30 37 L 19 09/28/20 18:29 35 L 20 144/69 H 09/28/20 18:25 43 L 16 145/73 H 09/28/20 18:15 41 L 13 139/91 09/28/20 18:07 42 L 18 130/85 09/28/20 18:03 40 L 21 130/85 09/28/20 18:01 40 L 19 142/76 H 09/28/20 18:00 41 L 15 09/28/20 17:41 48 L 22 167/82 H 09/28/20 17:31 47 L 17 154/101 H 09/28/20 17:30 47 L 18 09/28/20 17:24 46 L 24 09/28/20 17:23 47 L 20 154/101 H 09/28/20 17:19 42 L 20 165/95 H 09/28/20 16:50 36.4 C L 48 L 20 167/89 H Pulse Ox 09/28/20 19:00 98 09/28/20 18:32 99 09/28/20 18:31 97 09/28/20 18:30 98 09/28/20 18:29 99 09/28/20 18:25 97 09/28/20 18:15 97 09/28/20 18:07 96 09/28/20 18:03 98 09/28/20 18:01 96 09/28/20 18:00 96 09/28/20 17:41 09/28/20 17:31 09/28/20 17:30 09/28/20 17:24 97 09/28/20 17:23 99 09/28/20 17:19 96 09/28/20 16:50 97 Diagnostic Findings :MRI of brain IMPRESSION: 1. No acute intracranial findings. 2. Exam mildly compromised by motion artifact. 3. Mild atrophy and small vessel disease. Neck CTA: IMPRESSION: 1. Moderate calcified plaque within the proximal left internal carotid artery with mild stenosis at the vessel origin. 2. Mild stenosis at the origin of the right vertebral artery. 3. Dominant, patent left vertebral artery. CTA head: IMPRESSION: 1. Severe stenosis of the proximal right P2 segment with asymmetric decreased caliber of the branches of the right posterior cerebral artery. 2. Intact anterior circulation. 3. persistence of the left posterior cerebral artery with moderate stenosis of this vessel.
[2020-09-28] MEDS ORDERED: SODIUM CHLORIDE 0.9% 1000ML 1,000 ML IV SCH (19:15)
[2020-09-28 19:38] LABS: Lyme Ab IgG w/WB Rflx Negative (Negative); Lyme Ab IgM w/WB Rflx Negative (Negative)
--- NOTE | 2020-09-28 20:19 | Magnetic Resonance Report ---
MRI OF THE BRAIN WITHOUT CONTRAST CLINICAL HISTORY: Transient ischemic attack. Dizziness. COMPARISON STUDY: Head CT and CTA of the head performed earlier today. TECHNIQUE: Utilizing a 1.5 Fannie magnet and dedicated coil, multiplanar, multiecho imaging of the bra in was performed without IV contrast. FINDINGS: This exam is mildly compromised by motion artifact. There are no foci of restricted diffusi on to suggest acute infarct. No acute intracranial hemorrhage, midline shift or mass effect is presen t. Mild atrophy is noted. Ventricular system is unremarkable. The basilar cisterns are patent. There are no extra-axial collections. No intracranial masses are identified on this unenhanced examination. A few white matter T2 hyperintense foci are present. Orbits are unremarkable on this nondedicated ex am. IMPRESSION: 1. No acute intracranial findings. 2. Exam mildly compromised by motion artifact. 3. Mild atrophy and small vessel disease. ACT 112: Negative or not required by law. Electronically signed by: Fausto Bermudez M.D. 09/28/2020 8:17 PM
[2020-09-28] MEDS ORDERED: NON-FORMULARY MEDICATION (Glucos Sul 2kcl-Msm-Chond-C-Mn [Glucosamine Chondroitin] 550-30- PO SCH (21:57)
[2020-09-28] MEDS ORDERED: ACETAMINOPHEN 500 MG TAB PO PRN (21:57)
[2020-09-28] MEDS ORDERED: DEXTROSE 50% 50 ML SYRINGE IV PRN (22:15)
[2020-09-28] MEDS ORDERED: GLUCAGON FOR INJ 1 MG VIAL SQ PRN (22:15)
[2020-09-28] MEDS ORDERED: CARBOHYDRATES FOR HYPOGLYCEMIA PO PRN (22:15)
[2020-09-28] MEDS ORDERED: GLUCOSE 10 TABS/TUBE PO PRN (22:15)
[2020-09-28] MEDS ORDERED: GLUCOSE 40% GEL 15 GM TUBE PO PRN (22:15)
[2020-09-28] MEDS ORDERED: PNEUMOCOCCAL POLYSACCHARIDES 25 MCG/0.5 ML VIAL/SYR IM ONE (22:23)
[2020-09-28] MEDS ORDERED: PNEUMOCOCCAL ADMINISTRATION CHARGE ONE (22:23)
[2020-09-28] MEDS ORDERED: FLUTICASONE FUROATE 100MCG 14 PUFFS/INHALER INH PRN (22:25)
[2020-09-28] MEDS: carvediloL 6.25 MG TAB PO SCH (22:34)
[2020-09-28] MEDS: OMEGA-3 (PURIFIED FISH OIL) 1 GM CAP PO SCH (23:04)
[2020-09-29] MEDS: INSULIN ASPART 100 UNITS/ML 3 ML PEN SC SCH ×4 (07:54→20:59)
[2020-09-29] MEDS: ATORVASTATIN 40 MG TAB PO SCH (08:00)
[2020-09-29] MEDS: ASPIRIN 81 MG ECTAB PO SCH (08:00)
[2020-09-29 08:17] LABS: Hematocrit (blood only) 42.5 % (42-52); Hemoglobin 14.4 g/dL (14.0-18.0); Mean Corpuscular Hemoglobin 31.7 pg (25-34); Mean Corpuscular Hgb Conc 33.9 g/dL (32-36); Mean Corpuscular Volume 93.6 fL (80-100); Platelet Count 247 K/uL (130-400); RDW Coefficient of Variation 13.4 % (11.5-14.5); Red Blood Count 4.54 M/uL (4.7-6.1); White Blood Count 6.62 K/uL (4.8-10.8)
[2020-09-29 08:51] LABS: BUN Creatinine Ratio 13.4 (10-20); Creatinine Clr Calc Pharmacy 58.7 ml/min; Est GFR (African American) 68.7; Est GFR (Non-African American) 59.3; Potassium 4.2 mmol/L (3.5-5.1)
[2020-09-29] MEDS ORDERED: ASPIRIN 81 MG ECTAB PO SCH (09:00)
[2020-09-29] MEDS: carvediloL 6.25 MG TAB PO SCH (09:59)
--- NOTE | 2020-09-29 11:01 | Electrocardiogram Report ---
Test Reason : Blood Pressure : / mmHG Vent. Rate : 049 BPM Atrial Rate : 049 BPM P-R Int : 206 ms QRS Dur : 106 ms QT Int : 454 ms P-R-T Axes : 067 028 062 degrees QTc Int : 410 ms Sinus bradycardia Otherwise normal ECG When compared with ECG of 28-SEP-2020 17:17, (unconfirmed) Incomplete left bundle block is no longer Present Confirmed by Mike Taylor ([id number]) on 09/29/2020 11:01:23 AM Referred By: REFERRED SELF Confirmed By:Mike Taylor
--- NOTE | 2020-09-29 11:50 | Cardiology Consultation ---
Date of Consultation September 29, 2020 Assessment & Plan (1) Bradycardia: I believe the patient's presentation overnight last night as well as his recent outpatient 14 day telemetry monitor is consistent with tachycardia bradycardia syndrome. Will hold carvedilol. Recommend permanent pacemaker implantation to be performed later this afternoon, as patient had a light breakfast this morning. He has had a COVID-19 screen completed last evening which is negative. Will hold carvedilol pending pacemaker implantation. Future considerations include metoprolol or perhaps even sotalol for treatment of SVT. (2) VBI (vertebrobasilar insufficiency): Given the patient's presenting symptoms, certainly stroke is a consideration. Fortunately he has mcclelland an MRI of the brain with no acute intracranial findings. CT angiogram of the head and neck revealed moderate calcified plaque within the proximal left internal carotid artery with mild stenosis at the vessel origin, do not think this would explain the patient's symptoms. He is known to have mild stenosis at the origin of the right vertebral artery. Ongoing risk factor management recommended for this including ongoing statin therapy. LDL cholesterol as measured as an outpatient in November 2019 was 72 milligrams/deciliter. (3) Hypertension: As noted hold carvedilol for now. Will likely introduce metoprolol postprocedure and reassess blood pressure. Mild aortic root dilatation: Relatively stable on echocardiogram. Plan for repeat imaging at about a 1 year interval. The patient's daughter, Tammie is a registered nurse who works within the [facility]. I called her and discussed the findings impression that the patient would benefit from pacemaker with her and she was in agreement. I also called the patient's spouse, Vicky, and updated her with regards to the plans for pacemaker. History of Present Illness Attending Physician: Porfirio Salmon MD History of Present Illness Renny Bronson is a 69-year-old male seen in cardiology consultation per the request of Dr. Locke for the evaluation of symptomatic bradycardia. The patient's primary sole inker is Dr. Lambert of our practice. The patient states that he woke up yesterday 09/28/2020 at 4:00 a.m. with symptoms of heavy perspiration, dizziness, and lightheadedness the prevented him from being of the stand up with associated nauseousness. Things got better and he went to a local [employer] celebration, but then he felt worse again. Ultimately he presented to the emergency room last evening, and on presentation, he was so lightheaded that he required help with a wheelchair to come into the emergency room. On telemetry, he was found to have profound sinus bradycardia in the range of 30 to 40 beats per minute. His carvedilol was held last evening. During the 9:00 a.m. hour, on telemetry, ongoing sinus bradycardia in the range of low 40s was observed, that subsequently improved to the 50 beat to 60 beat per minute range overnight last night and this morning. This morning he is feeling much improved and back to his previous baseline. He had most recently been seen as an outpatient at [facility] by Silas SANCHEZ of our practice on 08/17/2020 at which time he had complained of having episodes 3 to 4 times per month worry a experienced rapid heart rate up to 140 beats per minute. A [employer] cardiac heart monitor had therefore been placed which the patient wore for an interval of 14 days ranging from 08/17/2020 until 08/31/2020. The predominant underlying rhythm was noted to be sinus rhythm with an average rate of 72 beats per minute. A single run of nonsustained ventricular tachycardia of 5 beats in duration was observed. One hundred twenty-five episodes of supraventricular tachycardia were observed the longest of which was 1 hour and 11 minutes in duration with maximum rate of 182 beats per minute. A pause was also noted of 3.9 seconds in duration during anticipated hours of sleep. Artifact was noted which limited the sensitivity te st, however there appeared to be intermittent second-degree AV block. Seven patient triggered events had been submitted that correlated with supraventricular tachycardia episodes, sinus rhythm, and sinus rhythm with supraventricular and ventricular ectopy. An outpatient electrophysiology consultation had tentatively been planned within the next week, but in the meantime the patient has presented to the hospital. Past Cardiac History: Low normal, the mild left ventricular systolic dysfunction, LVEF graded as 45 to 50% at time of resting echocardiogram when hospitalized for chest pain in April,. he went on to have an exercise stress echocardiogram however during that hospital stay with appropriate increase in the left ventricular systolic function post exercise, and the study was felt to be negative for inducible ischemia, with noted hypertensive blood pressure response. Repeat echocardiogram today 09/29/2020 revealed qualitative LVEF 55%, with trace mitral regurgitation, and mild aortic root dilatation of 4.2 centimeters, which is relatively stable compared to previous measurements as an outpatient. SVT as noted above. Dyslipidemia Allergies Allergy/AdvReac Type Severity Reaction Status Date / Time lisinopril Allergy Severe Cough, Verified 09/28/20 18:32 breathing issues and dizziness SPRUCE TREES Allergy Severe Difficulty Uncoded 09/28/20 18:32 Breathing, swelling Home Medications Home Medications Medication Instructions Recorded Confirmed Type Glucosamine Chondroitin 1 cap PO HS 04/10/19 09/28/20 History [place]-3 Fish Oil 1 cap PO HS 04/10/19 09/28/20 History acetaminophen [Tylenol Extra 1,000 mg PO Q6H PRN 04/10/19 09/28/20 History Strength] atorvastatin 80 mg PO QAM 04/10/19 09/28/20 History metformin [Glucophage] 500 mg PO BID 04/10/19 09/28/20 History aspirin [Aspirin Low Dose] 81 mg PO QAM 09/28/20 09/28/20 History carvedilol 6.25 mg PO BID 09/28/20 09/28/20 History fluticasone propionate [Flovent 2 puff INHALATION BID PRN 09/28/20 09/28/20 History HFA] Patient History Medical History CKD (chronic kidney disease), stage III Diabetes mellitus, type II Dyslipidemia Encounter for tobacco use cessation counseling Hypertension Injury of extensor tendon of left hand Open finger fracture Tobacco chew use Surgical History History of carpal tunnel surgery Family History Father Coronary heart disease [place] at age 80 Social History Smoking Status: Former smoker Tobacco Type: Cigarettes Cigarettes Per Day: 20, chew-pouch a week; Second Hand Exposure: No; Do You Dip or Chew Tobacco: Yes; Tobacco Cessation Education Requested by Patient: No Hx Alcohol Use: No Hx Substance Use: No Preferred Language: [place]ic Communication Ability: Effective Lode Miner Required: No Beliefs That Will Affect Care: None marital status: Current Living Situation: Spouse current occupational status: retired Other Information That Helps Us Care for You: No Feels Safe at Home: Yes Safety Concerns: Feels Safe At This Time Assistive Devices: Denture - Upper and Hearing Aid - Bilateral Physical Exam Physical Exam: Temp Pulse Resp BP Pulse Ox 36.5 C 55 L 18 143/82 H 96 09/29/20 11:31 09/29/20 11:31 09/29/20 11:31 09/29/20 11:31 09/29/20 11:31 Constitutional: WD/WN, vitals as above Respiratory: normal respiratory effort, lungs clear to auscultation Cardiovascular: RRR, no murmur, no edema Gastrointestinal (Abdomen): normal bowel sounds, soft, nontender, no hepatosplenomegaly Neurologic: PERRL, EOMI, accommodation nl, no face palsy, no dysarthria Results & Data ([facility]) Vital Signs (Past 12 Hours) Vital Signs Temp Pulse Resp BP Pulse Ox 09/29/20 11:31 36.5 C 55 L 18 143/82 H 96 09/29/20 07:14 36.8 C 52 L 18 129/78 98 09/29/20 02:55 36.5 C 60 18 130/76 95 Diagnostic Findings EKG performed 09/28/2020 at 5:17 p.m. and reviewed independently today reveals sinus bradycardia 44 beats per minute with incomplete left bundle branch block morphology. Repeat EKG performed 09/29/2020 and reviewed independently reveals sinus bradycardia 49 beats per minute with first-degree AV block. Telemetry: Other than sinus bradycardia noted last evening, no other significant abnormalities,
[2020-09-29] MEDS ORDERED: MIDAZOLAM HCL 5 MG/ML 1 ML VIAL ONE ×2 (14:00→15:24)
[2020-09-29] MEDS ORDERED: fentaNYL citrate 100 MCG/2 ML VIAL ONE ×2 (14:00→15:09)
[2020-09-29] MEDS ORDERED: LIDOCAINE HCL 1% 20 ML VIAL ONE (14:01)
[2020-09-29] MEDS ORDERED: BUPIVACAINE 0.25% 30 ML VIAL ONE (14:02)
--- NOTE | 2020-09-29 14:20 | History & Physical Bridge Note ---
Date of Service September 29, 2020 History & Physical Bridge Note I have examined the patient, reviewed the History & Physical and in the interval since the performance of the History & Physical I have noted the following changes of clinical significance: pt with TBS for dual chamber ppm; consents signed
--- NOTE | 2020-09-29 14:21 | Pre Anesthesia Assessment ---
Date of Service September 29, 2020 Pre Sedation Assessment Vital Signs Temp Pulse Pulse Resp BP BP BP 09/29/20 13:54 49 L 17 147/78 H 09/29/20 11:31 36.5 C 55 L 18 143/82 H 09/29/20 07:14 36.8 C 52 L 18 129/78 09/29/20 02:55 36.5 C 60 18 130/76 09/28/20 23:29 36.6 C 43 L 18 137/85 09/28/20 21:40 36.5 C 45 L 16 174/72 H 09/28/20 21:00 37 L 20 09/28/20 20:35 39 L 22 148/93 H 09/28/20 20:31 36 L 17 156/86 H 09/28/20 20:30 38 L 21 09/28/20 20:05 40 L 21 160/83 H 09/28/20 20:02 09/28/20 19:28 155/86 H 09/28/20 19:13 33 L 14 155/86 H 09/28/20 19:00 35 L 16 09/28/20 18:32 40 L 18 09/28/20 18:31 40 L 13 145/83 H 09/28/20 18:30 37 L 19 09/28/20 18:29 35 L 20 144/69 H 09/28/20 18:25 43 L 16 145/73 H 09/28/20 18:15 41 L 13 139/91 09/28/20 18:07 42 L 18 130/85 09/28/20 18:03 40 L 21 130/85 09/28/20 18:01 40 L 19 142/76 H 09/28/20 18:00 41 L 15 09/28/20 17:41 48 L 22 167/82 H 09/28/20 17:31 47 L 17 154/101 H 09/28/20 17:30 47 L 18 09/28/20 17:24 46 L 24 09/28/20 17:23 47 L 20 154/101 H 09/28/20 17:19 42 L 20 165/95 H 09/28/20 16:50 36.4 C L 48 L 20 167/89 H Pulse Ox 09/29/20 13:54 96 09/29/20 11:31 96 11/12/20 07:14 98 09/29/20 02:55 95 09/28/20 23:29 98 09/28/20 21:40 97 09/28/20 21:00 97 09/28/20 20:35 98 09/28/20 20:31 98 09/28/20 20:30 98 09/28/20 20:05 97 09/28/20 20:02 97 09/28/20 19:28 09/28/20 19:13 99 09/28/20 19:00 98 09/28/20 18:32 99 09/28/20 18:31 97 09/28/20 18:30 98 09/28/20 18:29 99 09/28/20 18:25 97 09/28/20 18:15 97 09/28/20 18:07 96 09/28/20 18:03 98 09/28/20 18:01 96 09/28/20 18:00 96 09/28/20 17:41 09/28/20 17:31 09/28/20 17:30 09/28/20 17:24 97 09/28/20 17:23 99 09/28/20 17:19 96 09/28/20 16:50 97 Cardiovascular + bradycardic Respiratory normal respiratory effort, lungs clear to auscultation Pre-Sedation Airway Assessment Smoking Status: Former smoker Short, Thick Neck: No Thyromental Distance: > or= 3.5 Finger Breadths Oral Cavity: + Dentures Mallampati Class: I ASA: ASA3 NPO Status Date of Last Intake of Fluids: 09/29/20 Time of Last Intake of Fluids: 07:30 Date of Last Intake of Solid Food: 09/28/20 Time of Last Intake of Solid Foods: 07:30 Procedure Planning Contraindications for Sedation: none Current Medications Reviewed: Yes Notes The planned sedation has been discussed with the patient. Informed Consent was obtained. I have identified the patient, determined the appropriateness of sedation and have assessed the patient immediately prior to the procedure. All medicine(s) and interventions are by my order.
--- NOTE | 2020-09-29 16:43 | Post Anesthesia Assessment ---
Date of Service September 29, 2020 Post Sedation Assessment Vital Signs Temp Pulse Pulse Resp BP BP BP 09/29/20 13:54 49 L 17 147/78 H 09/29/20 11:31 36.5 C 55 L 18 143/82 H 09/29/20 07:14 36.8 C 52 L 18 129/78 09/29/20 02:55 36.5 C 60 18 130/76 09/28/20 23:29 36.6 C 43 L 18 137/85 09/28/20 21:40 36.5 C 45 L 16 174/72 H 09/28/20 21:00 37 L 20 09/28/20 20:35 39 L 22 148/93 H 09/28/20 20:31 36 L 17 156/86 H 09/28/20 20:30 38 L 21 09/28/20 20:05 40 L 21 160/83 H 09/28/20 20:02 09/28/20 19:28 155/86 H 09/28/20 19:13 33 L 14 155/86 H 09/28/20 19:00 35 L 16 09/28/20 18:32 40 L 18 09/28/20 18:31 40 L 13 145/83 H 09/28/20 18:30 37 L 19 09/28/20 18:29 35 L 20 144/69 H 09/28/20 18:25 43 L 16 145/73 H 09/28/20 18:15 41 L 13 139/91 09/28/20 18:07 42 L 18 130/85 09/28/20 18:03 40 L 21 130/85 09/28/20 18:01 40 L 19 142/76 H 09/28/20 18:00 41 L 15 09/28/20 17:41 48 L 22 167/82 H 09/28/20 17:31 47 L 17 154/101 H 09/28/20 17:30 47 L 18 09/28/20 17:24 46 L 24 09/28/20 17:23 47 L 20 154/101 H 09/28/20 17:19 42 L 20 165/95 H 09/28/20 16:50 36.4 C L 48 L 20 167/89 H Pulse Ox 09/29/20 13:54 96 09/29/20 11:31 96 11/12/20 07:14 98 09/29/20 02:55 95 09/28/20 23:29 98 09/28/20 21:40 97 09/28/20 21:00 97 09/28/20 20:35 98 09/28/20 20:31 98 09/28/20 20:30 98 09/28/20 20:05 97 09/28/20 20:02 97 09/28/20 19:28 09/28/20 19:13 99 09/28/20 19:00 98 09/28/20 18:32 99 09/28/20 18:31 97 09/28/20 18:30 98 09/28/20 18:29 99 09/28/20 18:25 97 09/28/20 18:15 97 09/28/20 18:07 96 09/28/20 18:03 98 09/28/20 18:01 96 09/28/20 18:00 96 09/28/20 17:41 09/28/20 17:31 09/28/20 17:30 09/28/20 17:24 97 09/28/20 17:23 99 09/28/20 17:19 96 09/28/20 16:50 97 Recovery Score Activity: Moves 4 extremities Respiration: Deep Breath/Cough Circulation: +/-20% PreAnes Value Consciousness: Fully Awake Oxygen Saturation: > 92% On Room Air Discharge Sedation Level of Care: Fast Track Phase II Post Sedation Plan On clinical assessment, the patient appears to have tolerated the sedation w ithout complications. Patient is recovering as anticipated. Patient will continue to be monitored by nursing and may be discharged when sedation discharge criteria are met per below protocol. Upon Completions of procedure up to 15 minutes continue every 5 minute vital signs and the P.A.R. score; then discharge to a Phase I or Fast Track to Phase II per the following guidelines: * Discharge Patient to appropriate Phase II area if PAR is 8 or greater or return to pre- procedure baseline. The post - procedure orders will be as directed. * If PAR score is less than 8 or not return to pre-procedure baseline then patient will follow Phase I monitoring till PAR is reached for Phase II. The Phase I may be done in procedure room or may call to secure a Phase I area. * If naloxone or flumazenil are used for reversal, hold in Phase I for continued monitoring from when last reversal dose was given for a minimum of 60 minutes or longer pending the nurse and/or physician discretion of patient condition before discharge to Phase II. Please call the Sedation Physician to re-evaluate and complete post-note for discharge to Phase II area. Do NOT discharge from procedure sedation or Phase 1 until post- sedation evaluation note is complete by procedure /sedation MD Sedation Discharge Instructions to be given to the patient at discharge to home.
--- NOTE | 2020-09-29 16:44 | Operative Report ---
Post Operative Report Pre & Post Diagnosis TBS Operation Date: 09/29/20 14:00 <No data on this case meets the specified criteria> I identified the patient and participated in the time-out.: Yes Procedure Operation Date: 09/29/20 14:00 Actual Procedures p Pacer with A/V Leads (Dual) - Mansi Aguillon DO intracardiac EGM HIS bundle recording Surgeon Mansi Aguillon DO Vacuum Extractor Operator none Estimated Blood Loss 30 Findings Consistent with Post-Op Diagnosis Specimens none Description of Procedure see official report I attest to the content of the Intraoperative Record and any orders documented therein. Any exceptions are noted below.
[2020-09-29] MEDS: METOPROLOL SUCC 50MG EXT REL TAB PO SCH (17:17)
[2020-09-29] MEDS: OMEGA-3 (PURIFIED FISH OIL) 1 GM CAP PO SCH (20:24)
--- NOTE | 2020-09-29 20:28 | Hospitalist Progress Note ---
Date of Service September 29, 2020 Assessment & Plan (1) Bradycardia: Admitted with lightheadedness. Noted to have marked bradycardia on cardiac monitoring. TSH and Lyme screen negative. Takes carvedilol- held. Seen in consultation by Cardiology. 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 Cardiac pacemaker recommended and placed this afternoon by Dr. Aguillon. (2) Supraventricular tachycardia: Recent outpatient photovoltaic power systems engineer showed several runs of SVT. Carvedilol held for bradycardia- resume beta latisha after pacemaker placement. (3) Lightheadedness: Presented to ED with episode of lightheadedness / ? vertigo. Initial concern about possible TIA. Head CT negative. CTA cervical vessels showed moderate plaque left ICA with mild stenosis at the origin + mild stenosis at the origin of the right vertebral artery. CTA head showed "Severe stenosis of the proximal right P2 segment with asymmetric decreased caliber of the branches of the right posterior cerebral ar richard." MRI brain did not show any vascular events. Noted to have severe bradycardia. Symptoms probably related to bradycardia, but cerebrovascular disease may be contributing factor (decreased cerebral perfusion due to combination). Check lipid profile. Continue aspirin and statin. Vascular Surgery consulted. (4) Carotid artery disease: As noted above. (5) Vertebral artery stenosis: As noted above. (6) Hypertension: Carvedilol held for bradycardia- resume beta latisha after pacemaker. May need to maintain relatively high BP's for optimal cerebral perfusion in light of cerebrovascular disease with severe stenosis of the proximal right P2 segment. (7) CKD (chronic kidney disease), stage III: Creatinine stable at 1.22. 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 Usually managed with metformin. Check A1c. Hold metformin due to hospitalization + IV contrast with CTA. Lantus / NovoLog per protocol. (9) Dyslipidemia: Aggressive management indicated in light of cerebrovascular disease. Check lipid profile. Continue atorvastatin. (10) DVT prophylaxis: Low risk ( < 1.5%) per IMPROVE risk assessment model. No anticoagulants due to pacemaker placement. No SCD's. Ambulate. (11) Discharge planning issues: Anticipated discharge to home. Family Medicine follow-up with Dr. Landaverde. Cardiology follow-up with Dr. Lambert. Admission and Anticipated Discharge Date Admission Date: September 28, 2020 Subjective Recheck for arrhythmias and other problems. Patient seen in their room around 1850. Admitted yesterday with episode of lightheadedness. Noted to have significant bradycardia with rates in the 30's and 40's. Cardiology consulted and pacemaker recommended. Pacemaker placed by Dr. Aguillon this afternoon. Doing well postop. Only having minimal discomfort at [facility] site. Review of Systems: Constitutional- no fever. Cardiac- no anginal symptoms. Pulmonary- no cough or SOB. GI- no nausea, vomiting, diarrhea, melena, hematochezia. - no urinary symptoms. Otherwise, as noted above. Physical Exam Constitutional: no acute distress Eyes: sclerae not anicteric Respiratory: normal respiratory effort, lungs clear to auscultation Cardiovascular: Rate/Rhythm: regular rate and regular rhythm Vessels: no JVD Extremities: no calf tenderness and no edema Chest (Breasts): Chest: + pacemaker (left upper chest; bandaged) Gastrointestinal (Abdomen): normal bowel sounds, soft, nontender, no hepatosplenomegaly Musculoskeletal: Extremities: no cyanosis Skin: no rashes, warm and dry Psychiatric: Orientation: alert and oriented x 3 Results & Data Results & Data ([facility]) Vital Signs (Past 12 Hours) Vital Signs Temp Pulse Resp BP BP Pulse Ox 09/29/20 19:16 36.7 C 66 18 145/77 H 94 09/29/20 17:52 36.3 C L 61 20 162/88 H 95 09/29/20 17:04 36.6 C 61 18 154/97 H 95 09/29/20 13:54 49 L 17 147/78 H 96 09/29/20 11:31 36.5 C 55 L 18 143/82 H 96 Laboratory Results 09/29/20 07:50 09/29/20 07:50
[2020-09-30 07:04] LABS: BUN Creatinine Ratio 15.4 (10-20); Calcium 8.6 mg/dl (8.5-10.1); Creatinine Clr Calc Pharmacy 55.5 ml/min; Est GFR (African American) 64.2; Est GFR (Non-African American) 55.4; Potassium 4.2 mmol/L (3.5-5.1)
[2020-09-30 07:40] LABS: Estimated Average Glucose 157 mg/dl; Hemoglobin A1C 7.1 % (4.5-5.6)
[2020-09-30] MEDS: INSULIN ASPART 100 UNITS/ML 3 ML PEN SC SCH (07:56)
--- NOTE | 2020-09-30 07:56 | XRay Report ---
XR chest 2V PA/lateral CLINICAL HISTORY: Pacemaker placement COMPARISON STUDY: 09/28/2020 FINDINGS: The cardiac and mediastinal contours remain stable. There is aortic tortuosity. There is be en interval insertion of a left subclavian dual-chamber central venous pacemaker. There is no pneumot horax. Electrode position appears unremarkable. There is no focal pulmonary consolidation. There are no pleural effusions. There is no failure.[ IMPRESSION: No evidence of pneumothorax status post placement of a left subclavian dual-chamber centr al venous pacemaker. ACT 112: Negative or not required by law. Electronically signed by: Angel Morales M.D. 09/30/2020 7:55 AM
[2020-09-30] MEDS: METOPROLOL SUCC 50MG EXT REL TAB PO SCH (08:58)
[2020-09-30] MEDS: ATORVASTATIN 40 MG TAB PO SCH (08:59)
[2020-09-30] MEDS: ASPIRIN 81 MG ECTAB PO SCH (08:59)
[2020-09-30] MEDS ORDERED: dilTIAZem HCL 120 MG CAPCR PO SCH (09:00)
--- NOTE | 2020-09-30 09:13 | Cardiology Progress Note ---
Date of Service September 30, 2020 Assessment & Plan (1) Bradycardia: Problems: SYMPTOMATIC SINUS BRADYCARDIA TACHYCARDIA BRADYCARDIA SYNDROME WITH PAROXYSMAL SVT, INTERMITTENT AV BLOCK HYPERTENSION H/O MILD LV SYSTOLIC DYSFUNCTION IN PAST, LVEF 55% THIS ADMISSION Pt's CXR this am reveals no pneumothorax and appropriate lead position. Interrogation reveals normal function. Telemetry reveals SR with atrial pacing in the 60s. Stable for discharge today. Prior to hospital carvedilol is to be discontinued. Start metoprolol succinate 50 mg daily in am and Diltiazem CD 120 mg daily -both new medications. Continue ROD PILER atorvastatin 80 mg daily. DISPOSITION: Outpatient EP consult previously scheduled for 10/04/20 has been cancelled. Patient to have wound check, device check , 10/06/2020 1:00 PM at [facility]. I have sent message to office to request follow up visit with me, Mr Clancy, Dr Lambert or other PA within 1-3 weeks. Admission and Anticipated Discharge Date Admission Date: September 28, 2020 Subjective Patient seen in follow up. Denies chest pain or shortness of breath. Tolerated pacemaker well. Review of Systems Review of Systems: All systems reviewed & are unremarkable except as noted in HPI & below Physical Exam Physical Exam: Temp Pulse Resp BP Pulse Ox 36.8 C 64 18 159/93 H 95 09/30/20 07:52 09/30/20 07:52 09/30/20 07:52 09/30/20 07:52 09/30/20 07:52 Constitutional: WD/WN, vitals as above Respiratory: normal respiratory effort, lungs clear to auscultation Cardiovascular: RRR, no murmur, no edema Chest (Breasts): Chest: + pacemaker (pocket clean , dry, mild ecchycmosis, no drainage) Gastrointestinal (Abdomen): normal bowel sounds, soft, nontender, no hepatosplenomegaly Neurologic: PERRL, EOMI, accommodation nl, no face palsy, no dysarthria Results & Data ([facility]) Vital Signs (Past 12 Hours) Vital Signs Temp Pulse Resp BP Pulse Ox 09/30/20 07:52 36.8 C 64 18 159/93 H 95 09/30/20 05:00 36.7 C 60 157/94 H 94 09/29/20 23:58 37 C 57 L 18 134/75 94
--- NOTE | 2020-09-30 10:46 | Hospitalist Progress Note ---
Date of Service September 30, 2020 Assessment & Plan (1) Bradycardia: Admitted with lightheadedness. Noted to have marked bradycardia on cardiac monitoring. TSH and Lyme screen negative. Carvedilol held. Seen in consultation by Cardiology. Recent outpatient radiation monitor consistent with tachy-fab syndrome. Cardiac pacemaker recommended and placed 09/[address] Aguillon. (2) Supraventricular tachycardia: Recent outpatient radiation monitor showed several runs of SVT. Carvedilol held for bradycardia. Started on metoprolol succinate after pacemaker placed. (3) Lightheadedness: Presented to ED with episode of lightheadedness / ? vertigo. Initial concern about possible TIA. Head CT negative. CTA cervical vessels showed moderate plaque left ICA with mild stenosis at the origin + mild stenosis at the origin of the right vertebral artery. CTA head showed "Severe stenosis of the proximal right P2 segment with asymmetric decreased caliber of the branches of the right posterior cerebral artery." MRI brain did not show any vascular events. Noted to have severe bradycardia. Symptoms probably related to bradycardia, but cerebrovascular disease may be contributing factor (decreased cerebral perfusion due to combination). Lipid management as discussed below. Continue aspirin and statin. (4) Carotid artery disease: CTA cervical vessels showed moderate plaque left ICA with mild stenosis at the origin + mild stenosis at the origin of the right vertebral artery. Continue aspirin and statin. Follow-up imaging recommended by carotid duplex in 6-12 months. Outpatient referral to Vascular Surgery recommended. Images to be sent to [facility]. (5) Vertebral artery stenosis: As noted above. (6) Hypertension: Carvedilol held for bradycardia- resume beta latisha after pacemaker. May need to maintain relatively high BP's for optimal cerebral perfusion in l ight of cerebrovascular disease with severe stenosis of the proximal right P2 segment. (7) CKD (chronic kidney disease), stage III: Creatinine stable at 1.29. 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 Usually managed with metformin. Hgb A1c = 7.1. Hold metformin due to hospitalization + IV contrast with CTA. Lantus / NovoLog per protocol. FBS today = 118. Resume usual outpatient regimen at time of discharge. (9) Dyslipidemia: Aggressive management indicated in light of cerebrovascular disease. LDL-c = 62. Continue high-intensity atorvastatin. (10) DVT prophylaxis: Low risk ( < 1.5%) per IMPROVE risk assessment model. No anticoagulants due to pacemaker placement. No need for SCD's. Ambulate. (11) Discharge planning issues: Home medication reconciliation reviewed with patient / and updated. Discharged to home. Family Medicine follow-up with Dr. Landaverde. Cardiology follow-up with Dr. Lambert. Admission and Anticipated Discharge Date Admission Date: September 28, 2020 Subjective Recheck for arrhythmias and other problems. Patient seen in their room around 1030. Pacemaker placed yesterday. Doing well postop. Only having minimal discomfort at pacemaker site. No CP, SOB, lightheadedness. Ambulating. Ready for DC. Physical Exam Constitutional: no acute distress Eyes: sclerae not anicteric Respiratory: normal respiratory effort, lungs clear to auscultation Cardiovascular: Rate/Rhythm: regular rate and regular rhythm Vessels: no JVD Extremities: no calf tenderness and no edema Chest (Breasts): Chest: + pacemaker (left upper chest; bandaged) Gastrointestinal (Abdomen): normal bowel sounds, soft, nontender, no hepatosplenomegaly Musculoskeletal: Extremities: no cyanosis Skin: no rashes, warm and dry Psychiatric: Orientation: alert and oriented x 3 Results & Data Results & Data ([facility]) Vital Signs (Past 12 Hours) Vital Signs Temp Pulse Pulse Resp BP Pulse Ox 09/30/20 07:52 36.8 C 64 18 159/93 H 95 09/30/20 07:00 61 09/30/20 05:00 36.7 C 60 157/94 H 94 09/29/20 23:58 37 C 57 L 18 134/75 94
--- NOTE | 2020-09-30 12:19 | Electrocardiogram Report ---
Test Reason : Blood Pressure : / mmHG Vent. Rate : 060 BPM Atrial Rate : 060 BPM P-R Int : 232 ms QRS Dur : 104 ms QT Int : 430 ms P-R-T Axes : -05 -11 018 degrees QTc Int : 430 ms Atrial-paced rhythm with prolonged AV conduction Abnormal ECG When compared with ECG of 29-SEP-2020 07:03, Electronic atrial pacemaker has replaced Sinus rhythm Nonspecific T wave abnormality now evident in Inferior leads Confirmed by Mike Taylor ([id number]) on 09/30/2020 12:18:46 PM Referred By: REFERRED SELF Confirmed By:Mike Taylor
--- NOTE | 2020-09-30 13:16 | Consultation ---
Date of Consultation September 30, 2020 Discharge before being seen Patient was in medical laboratory manager yesterday when we were rounding. History of Present Illness Attending Physician: Porfirio Salmon MD Allergies Allergy/AdvReac Type Severity Reaction Status Date / Time lisinopril Allergy Severe Cough, Verified 09/28/20 18:32 breathing issues and dizziness SPRUCE TREES Allergy Severe Difficulty Uncoded 09/28/20 18:32 Breathing, swelling Home Medications Home Medications Medication Instructions Recorded Confirmed Type Glucosamine Chondroitin 1 cap PO HS 04/10/19 09/28/20 History Dumont-3 Fish Oil 1 cap PO HS 04/10/19 09/28/20 History acetaminophen [Tylenol Extra 1,000 mg PO Q6H PRN 04/10/19 09/28/20 History Strength] atorvastatin 80 mg PO QAM 04/10/19 09/28/20 History metformin [Glucophage] 500 mg PO BID 04/10/19 09/28/20 History Flovent HFA 2 puff INHALATION BID PRN 09/28/20 09/28/20 History aspirin [Aspirin Low Dose] 81 mg PO QAM 09/28/20 09/28/20 History hydrochlorothiazide 25 mg PO DAILY 09/30/20 09/30/20 History lisinopril 10 mg PO BID 09/30/20 09/30/20 History metoprolol succinate 50 mg PO DAILY #30 tab 09/30/20 Rx Patient History Medical History (Updated 09/30/20 @ 01:01 by Porfirio Salmon MD) Carotid artery disease CKD (chronic kidney disease), stage III Diabetes mellitus type 2 with complications Diabetes mellitus, type II Dyslipidemia Encounter for tobacco use cessation counseling Hypertension Injury of extensor tendon of left hand Open finger fracture Supraventricular tachycardia Tobacco chew use Vertebral artery stenosis Surgical History History of carpal tunnel surgery Family History Father Coronary heart disease [place] at age 80 Social History Smoking Status: Former smoker Tobacco Type: Cigarettes Cigarettes Per Day: 20, chew-pouch a week; Second Hand Exposure: No; Hx Alcohol Use: No Hx Substance Use: No Preferred Language: [place] Communication Ability: Effective Rustic Fence Builder Required: No Beliefs That Will Affect Care: None marital status: Current Living Situation: Spouse current occupational status: retired Feels Safe at Home: Yes Assistive Devices: Hearing Aid - Bilateral Results & Data ([facility]) Vital Signs (Past 12 Hours) Vital Signs Temp Pulse Pulse Resp BP BP Pulse Ox 09/30/20 11:49 36.8 C 64 18 147/78 H 159/93 H 95 09/30/20 07:52 36.8 C 64 18 159/93 H 95 09/30/20 07:00 61 09/30/20 05:00 36.7 C 60 157/94 H 94
--- NOTE | 2020-10-01 08:51 | Discharge Summary ---
Date of Service Date of Admission: 09/28/20 Date of Discharge: 09/30/20 Admission HPI Per Admitting Provider This is a 69-year-old male with past medical history of hypertension/CKD stage III, type 2 diabetes, presented to the ER with complaint of vertigo, lightheadedness symptoms started around 4 AM in the morning. Patient reports waking up with severe dizzy spell lightheadedness, to the point he could not stand up, leaning to his right side, Had nausea, had episode of vomiting on his way to ER. Denies of any shortness of breath, experienced central chest heaviness transiently. No blurred vision, no weakness or paresthesia in any part of the body, no slurred speech or effusion. Patient was brought to the ER by her daughter visit registered nurse at [facility] in late afternoon. Stroke alert was called, patient was found outside [facility] window. Patient's feeling of dizzy spell gradually improved after few hours, still having a gait disturbance while walking. Patient noted to be bradycardic heart rate dropping down to 30s/40s-. Patient reports experiencing palpitations on and off at nighttime in the past several weeks,. Denies of bleeding discharge exertion, at baseline patient is very active, worked on his yard yesterday, chopping foods, mowing grass. Did not had any symptoms of shortness of breath chest heaviness dizzy spell or palpitation. Principal Diagnosis tachy-fab syndrome with symptomatic severe bradycardia OTHER NEW / ACUTE DIAGNOSES cerebrovascular disease left carotid plaque / 30% stenosis mild stenosis at the origin of the right vertebral artery severe stenosis of the proximal right P2 segment with asymmetric decreased caliber of the branches of the right posterior cerebral artery Discharge Data Allergies Allergy/AdvReac Type Severity Reaction Status Date / Time lisinopril Allergy Severe Cough, Verified 09/28/20 18:32 breathing issues and dizziness SPRUCE TREES Allergy Severe Difficulty Uncoded 09/28/20 18:32 Breathing, swelling Consultations 09/28/20 18:05 ED Decision to Admit Stat 09/28/20 19:05 Consult Cardiology Routine 09/28/20 19:08 Consult Case Management - Discharge Planning Routine 09/28/20 22:16 Consult Vascular Surgery Routine Procedures Performed Operation Date: 09/29/20 14:00 Actual Procedures p Pacer with A/V Leads (Dual) - Mansi Aguillon DO s Venogram, Unilateral - DO meme Wall Bundle of his Recording - Mansi Aguillon DO Ordered Studies 09/28/20 16:58 CT angio head w con Stat CT angio neck with con Stat CT head/brain wo con Stat 09/28/20 18:05 MR brain wo con Stat 09/29/20 14:15 EP Lab Images for PACS ONCE Hospital Course (1) Bradycardia: Admitted with lightheadedness. Noted to have marked bradycardia on cardiac monitoring. TSH and Lyme screen negative. Carvedilol held. Seen in consultation by Cardiology. Recent outpatient satellite project site monitor consistent with tachy-fab syndrome. Cardiac pacemaker recommended and placed 09/[address] Aguillon. (2) Supraventricular tachycardia: Recent outpatient satellite project site monitor showed several runs of SVT. Carvedilol held for bradycardia. Started on metoprolol succinate after pacemaker placed. (3) Lightheadedness: Presented to ED with episode of lightheadedness / ? vertigo. Initial concern about possible TIA. Head CT negative. CTA cervical vessels showed moderate plaque left ICA with mild stenosis at the origin + mild stenosis at the origin of the right vertebral artery. CTA head showed "Severe stenosis of the proximal right P2 segment with asymmetric decreased caliber of the branches of the right posterior cerebral artery." MRI brain did not show any vascular events. Noted to have severe bradycardia. Symptoms probably related to bradycardia, but cerebrovascular disease may be contributing factor (decreased cerebral perfusion due to combination). Lipid management as discussed below. Continue aspirin and statin. (4) Carotid artery disease: CTA cervical vessels showed moderate plaque left ICA with mild stenosis at the origin + mild stenosis at the origin of the right vertebral artery. Continue aspirin and statin. Follow-up imaging recommended by carotid duplex in 6-12 months. Outpatient referral to Vascular Surgery recommended. Images to be sent to [facility] PACS. (5) Vertebral artery stenosis: As noted above. (6) Hypertension: Carvedilol held for bradycardia- resume beta latisha after pacemaker. May need to maintain relatively high BP's for optimal cerebral perfusion in light of cerebrovascular disease with severe stenosis of the proximal right P2 segment. Discharge on metoprolol succinate 50 mg daily with continuation of HCTZ + lisinopril. (7) CKD (chronic kidney disease), stage III: Creatinine stable at 1.29. 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 Usually managed with metformin. Hgb A1c = 7.1. Hold metformin due to hospitalization + IV contrast with CTA. Lantus / NovoLog per protocol. FBS day of discharge = 118. Resume usual outpatient regimen at time of discharge. (9) Dyslipidemia: Aggressive management indicated in light of cerebrovascular disease. LDL-c = 62. Continue high-intensity atorvastatin. (10) DVT prophylaxis: Low risk for VTE ( < 1.5%) per IMPROVE risk assessment model. No anticoagulants due to pacemaker placement. No need for SCD's. Ambulate. (11) Discharge planning issues: Home medication reconciliation reviewed with patient / and updated. Discharged to home. Family Medicine follow-up with Dr. Landaverde. Cardiology follow-up with Dr. Lambert. Total Time Total Time Spent Total Time Spent (In Minutes): 40 Discharge Plan Discharge Items Patient Disposition: Home - Self-Care Reason For Visit: DIZZY SPELL Discharge Diagnosis: bradycardia (slow heart beat) Condition on Discharge: Good Activity: As commented below Activity Comment: do not raise the left elbow over the left shoulder for 1 month Lifting: No more than 10 pounds Lifting Comment: do not lift more than 10 pounds with the left arm for 2 weeks Bathing: Keep incision dry Bathing Comment: keep dressing on and dry until wound check next week Non-emergency contact: Primary Care Provider, Hospitalist and Tube Bender Hand Call non-emergency contact if: you have any medication questions and your symptoms worsen Follow-up/Referrals: Brian Lambert DO [Tube Bender Hand] - (10/07/2020 2:30 PM Brian Lambert, Cardiology, [facility]) Silas Landaverde MD [Primary Care Provider] - Diet: Heart Healthy Addtl Attending Provider Instructions: MEDICATION CHANGES: STOP carvedilol (Coreg) NEW MEDICATION: metoprolol succinate (Toprol XL) 50 mg once a day in the morning good for control of heart rhythm and blood pressure; helps heart work more efficiently SUMMARY OF TEST RESULTS: Heart monitor showed bradycardia (slow heart beat). No sign of stroke on CT scan or MRI scan. CT angiogram (picture of arteries in neck and brain) showed hardening of the arteries and some narrowing. LDL cholesterol was 62 (good result!). Lyme test was negative. COVID test was negative. OTHER INSTRUCTIONS: Heart monitor before admission showed that sometime your heart races too fast. The metoprolol succinate (Toprol) will help control that. Stimulants can make it worse. Best to avoid caffeine, nicotine, excessive alcohol, and decongestant medicines commonly found in cold and allergy medications (ask you pharmacist if you have any questions). Please get a flu vaccine in clinic if you have not yet done so. Hydrochlorothiazide can make you dehydrated in hot weather. Skip dose on days when it is hot and you are outside. Seek medical attention if you have: * temperature above 101 * chest pain or trouble breathing * abdominal pain, nausea, vomiting * diarrhea, dark stools or bloody stools * any unanswered questions or concerns Call 911 if symptoms are severe. Please take good care of yourself. Call if you have any questions or problems. You can reach a [facility] [address] hospitalist on duty at [facility] 24 hours a day by calling [phone]. My cell # is [phone]. Add Foundry Finisher Provider Instructions: Device and wound check at [facility] on 10/06 at 12:45pm You do not need to see Dr. Aguillon on Thursday 10/04-that appointment was cancelled. Pending Studies at Discharge: No Stand-Alone Forms: My [facility], Smoking Cessation Medications and DC Order Prescriptions: New metoprolol succinate 50 mg tablet extended release 24 hr 50 mg PO DAILY Qty: 30 RF: 5 Continued metformin [Glucophage] 500 mg Tablet 500 mg PO BID RF: 0 atorvastatin 80 mg Tablet 80 mg PO QAM RF: 0 acetaminophen [Tylenol Extra Strength] 500 mg Tablet 1,000 mg PO Q6H PRN (Reason: Pain) RF: 0 Lenox-3 Fish Oil 300-1,000 mg Capsule 1 cap PO HS RF: 0 Glucosamine Chondroitin 550-30-1 mg Capsule 1 cap PO HS RF: 0 aspirin [Aspirin Low Dose] 81 mg Tablet,Delayed Release (Dr/Ec) 81 mg PO QAM RF: 0 Flovent HFA 220 mcg/actuation HFA aerosol inhaler 2 puff INHALATION BID PRN (Reason: Shortness Of Breath) RF: 0 lisinopril 10 mg tablet 10 mg PO BID RF: 0 hydrochlorothiazide 25 mg tablet 25 mg PO DAILY RF: 0 Discontinued carvedilol 6.25 mg tablet 6.25 mg PO BID RF: 0 Discharge Orders: Discharge Order (Routine); Ordered 09/30/20 Ordered By: Porfirio Flores/Other Patient Handouts: High Blood Sugar (Hyperglycemia), Hypoglycemia (Low Blood Sugar), Managing Type 2 Diabetes, Discharge Instructions for ... Admission Data Admit Date/Time: 09/28/20 19:05 Attending Provider: Porfirio Salmon Admit Provider: Marilin Locke Primary Care Provider: Silas Landaverde Other Providers: Marilin Locke ; Kelvin Britt ; Nick Ambriz ; Wilner Ching ; Sergio Aguilera ; Brian Lambert ; Silas Clancy ; Samantha Lopez ; Mansi Aguillon ; Hiram Dominguez ; Joaquin De La Torre Other Interventions: Discharge Summary Assessment (RN) Last Done: 09/30/20 11:49
--- NOTE | 2020-10-11 12:01 | Operative Report (OR) ---
DATE OF OPERATION: 09/29/2020 PREOPERATIVE DIAGNOSIS: Tachybrady syndrome. POSTOPERATIVE DIAGNOSIS: Tachybrady syndrome. PROCEDURE: Dual chamber rate responsive (left bundle) permanent pacemaker with intracardiac electrogram, His bundle recording, and peripheral venogram under fluoroscopic guidance. SURGEON: Mansi Aguillon DO. ASSISTANTS: None. ANESTHESIA: Monitored conscious sedation administered under my supervision by Mamie Bedolla. Start time 1429 hours, end time 1639 hours. Total of 8 mg of Versed, 200 mcg of fentanyl. INTRAVENOUS FLUIDS: 64 mL. ANTIBIOTICS: 2 grams of Ancef. CONTRAST: 30 mL. BLOOD LOSS: 25 mL. URINE OUTPUT: Not applicable. SPECIMENS: None. FINDINGS: See below. DRAINS: None. INDICATIONS: This is a 70-year-old gentleman with past medical history for sinus bradycardia, paroxysmal atrial tachycardia, vertebrobasilar insufficiency, hypertension, diabetes, hyperlipidemia. He was admitted to [facility] with evidence of tachybrady syndrome and was recommended a pacemaker prior to discharge. CONSENT: Consent was obtained prior to the patient going into electrophysiology lab. The patient was informed of the risks, benefits and alternative procedure. Risks include but not limited to sudden cardiac , cardiac arrhythmias, cerebrovascular accident, myocardial infarction, injury to the blood vessels, chamber of the heart, lung, bleeding, and infection. The patient understood these risks and agreed to the procedure as planned. Informed consent was obtained. DESCRIPTION OF THE PROCEDURE: The patient was brought into electrophysiology lab in a fasting state and was connected to continuous membership assistant. Timeout was performed to ensure patient identity and procedure correctly. The patient was prepped and draped over the left infraclavicular space in normal surgical standard fashion. Monitored conscious sedation was given throughout the procedure for patient's comfort level. He received prophylactic antibiotics prior to incision. [place] precautions were maintained throughout the procedure. 10 mL of 1% lidocaine-bupivacaine mixture were given in the left deltopectoral groove. Incision was made in the left deltopectoral groove. Blunt dissection was performed down to identify the cephalic vein; however, none could be identified, so peripheral venogram was performed to identify the axillary vein. Venous axillary access was obtained through a needlestick without any problems. A guidewire was inserted without any resistance. Then, a 7-Uzbek sheath was inserted over the guidewire, the dilator was removed and a second guidewire was inserted through the sheath to allow for retained venous access. Sheath was removed and flushed and reinserted over the dilator, then reinserted over one of the guidewires. The guidewire and dilator were removed. Then, the preformed His sheath was advanced into the right atrium over a Glidewire. The Glidewire and dilator were removed. Then, the lead was advanced and intracardiac electrogram mapping of the His bundle region was performed to identify the His. Then, fluoroscopic camera was placed in ALANIZ 30 and on the camera screen, we marked where the His region was, then denice another dot on the fluoroscopy screen 2 cm down from that in a line that would extend out to the apex of the heart and marked that as an idea of where I wanted the left bundle lead. Then, I positioned the His sheath down in that region in ALANIZ 30, then in SARAI 30. I then started giving a series of clockwise turns to start screwing the lead slowly into the septum, pausing every few turns to see how my QRS morphology looked, in particular V1 looking at that notch to see as it moved from the left of the QRS to the end of the QRS as well as looking at my pacing stimulation to QRS peak in V6 as well as looking my impedance drops. After doing this a number of times, I then gave contrast through the sheath to see where I was against the septum. Of note, I did have to reposition the left bundle one time because I think that is a little too high up in the septum and the feel was not right as I was screwing in nor was the W pattern in V1. Ultimately, we were satisfied with the success of where the lead position was in the venogram, I then slit the His sheath under fluoroscopic guidance. I kept the 7 Safe Uzbek sheath in while I went and placed the right atrial lead. A second 7-Uzbek sheath was inserted over the retained guidewire without any resistance. Guidewire and dilator removed. The right atrial lead was then advanced into right atrium and positioned into the right atrial appendage under fluoroscopic guidance. There was adequate pacing and sensing thresholds and no diaphragmatic stimulation with high output pacing. The 7-Uzbek sheath was peeled away and lead was fixated to pectoralis muscle using 0 silk suture. A 7-Uzbek sheath over the left bundle lead was then slit and the lead was fixated to pectoralis muscle using 0 silk suture. A pacemaker pocket was created using blunt dissection over the pectoralis muscle within the pectoralis fascia. Then the pocket was flushed with copious amounts of bacitracin saline wash and inspected for hemostasis. Pulse generator was then attached to the leads making sure the pins were in appropriate position, passed set screws and set screws were all tightened. Pulse generator was then placed in the pocket, making sure the leads were lying flat beneath the device. A Tyrx pouch was placed also in the pocket and then the incision was closed in a 3-layer fashion using 2-0 Vicryl interrupted suture followed by 3-0 Vicryl interrupted suture, followed by a 4-0 Monocryl running stitch and Dermabond was applied followed by a Telfa and micropore dressing. EQUIPMENT: 1. The pulse generator is a [employer] Kary XT DR LAI Darnell [id number], serial number [id number]. 2. Right atrial lead: Medtronic 5076-52 cm, serial number [id number]. 3. Right ventricular lead: Medtronic 3830-69 cm, serial number [id number]. 4. The Tyrx pouch reference [id number], lot number [id number], expiration 05/05/2021. INTRAOPERATIVE TESTIN. The AH was measured to be 110 milliseconds, HV was 63 milliseconds. 2. Right atrial lead: P waves ____ millivolts, impedance 608 ohms, threshold 0.25 volts at 0.5 milliseconds. 3. Left bundle lead: R waves 5 millivolts, impedance 760 ohms, threshold 0.75 volts at 0.5 milliseconds. FINAL MEASUREMENTS THROUGH THE DEVICE: 1. Right atrial lead: P waves 2.6 millivolts, impedance 551 ohms, threshold 0.25 volts at 0.4 milliseconds. 2. Left bundle lead: R waves 14.5 millivolts, impedance 969 ohms, threshold 0.75 volts at 0.4 milliseconds. FINAL PARAMETERS: MVP-R 60/130, right atrial amplitude 3.5 volts, pulse width 0.4 milliseconds, sensitivity 0.3 millivolts. Left bundle lead amplitude 3.5 volts, pulse width 0.4 milliseconds, sensitivity 0.9 millivolts. IMPRESSION: Successful implantation of a dual chamber rate responsive permanent pacemaker where the right ventricular lead is actually over the left bundle position under fluoroscopic guidance along with a peripheral venogram and intracardiac electrogram mapping of the His bundle region secondary to tachybrady syndrome. PLAN: Monitor the patient overnight, 12-lead ECG, chest x-ray. He cannot lift the left elbow or left shoulder for 1 month. He cannot lift more than 10 pounds with the left arm for 2 weeks. He is to keep the dressing on and dry until his wound check next week and he can wear a sling for comfort and we will defer to his primary interlocking installer for additional AV joan blocking agents. I attest to the content of the Intraoperative Record and any orders documented therein. Any exception s are noted below.
== END 2020-09-30 12:09 | disposition home or self-care (01) | DRG 243 ==
LOC: ED 16:43 → 2S 19:05 → SUATTDRO 19:05 → 2S 20:52